=== PATIENT | male | born 1940 | race Caucasian/White ===

== ENCOUNTER 2016-08-05 16:15 | Inpatient (IN) | payer OTHER, MEDICARE ==
[~2016-08-05] VITALS: Ht 177.8 cm; Wt 97.4 kg
[2016-08-11] MEDS ORDERED: LEVO50TA4 PO (13:27)
[2016-08-11] MEDS ORDERED: ATEN50TA PO (13:27)
[2016-08-11] MEDS ORDERED: ALBU1AER5 INH (13:27)
[2016-08-11] MEDS ORDERED: CYAN1DRO SL (13:27)
[2016-08-11] MEDS ORDERED: VENTAER INH (13:27)
[2016-08-11] MEDS ORDERED: FOLI1TAB4 PO (13:27)
[2016-08-11] MEDS ORDERED: COUM5TAB PO (13:27)
[2016-08-12 12:30] VITALS: BP 143/93; PULSE 86; RESP 20; TEMP 97.5; O2SAT 95
[2016-08-12] MEDS ORDERED: ALVIMOPAN 12 MG CAPSULE ONE (12:43)
[2016-08-12] MEDS ORDERED: SODIUM CHLORID 0.9% 500 ML IV SCH (12:45)
[2016-08-12] MEDS ORDERED: METRONIDAZOLE 500 MG/100 ML ISONTONIC SOLN IV SCH (12:45)
[2016-08-12] MEDS ORDERED: LACTATED RINGER'S 1000 ML IV SCH (12:45)
[2016-08-12] MEDS ORDERED: METOPROLOL TARTRATE 25 MG TAB PO PRN (12:45)
[2016-08-12] MEDS ORDERED: INSULIN HUMAN REGULAR 1,000 UNITS/10 ML VIAL SQ PRN (12:45)
[2016-08-12] MEDS ORDERED: ceFAZolin 2 GM PREMIX 50 ML IV SCH (12:45)
[2016-08-12 12:53] LABS: BASOPHIL % 0.3 % (0.0-2.0); EOSINOPHIL # 0.2 TH/MM3 (0-0.4); EOSINOPHIL % 3.1 % (0.0-4.0); HEMATOCRIT 45.5 % (39.0-51.0); HEMO FLAGS DIFF FINAL; LYMPH % 23.5 % (9.0-44.0); LYMPHOCYTE # 1.5 TH/MM3 (1.0-4.8); MEAN CORPUSCULAR HEMOGLOBIN 33.6 PG (27.0-34.0); MEAN CORPUSCULAR HGB CONC 34.7 % (32.0-36.0); NEUT % 64.1 % (16.0-70.0); PLATELET COUNT 180 TH/MM3 (150-450); RED BLOOD COUNT 4.69 MIL/MM3 (4.50-5.90); WHITE BLOOD COUNT 6.2 TH/MM3 (4.0-11.0)
[2016-08-12] MEDS ORDERED: ALVIMOPAN 12 MG CAPSULE - On Call PO SCH (13:00)
[2016-08-12] MEDS ORDERED: BUPIVACAINE/EPINEPHRINE 0.25% PF 30 ML VIAL ONE (13:00)
[2016-08-12] MEDS ORDERED: NEOSTIGMINE 3 MG/3 ML SYR IV ONE (13:02)
[2016-08-12] MEDS ORDERED: ePHEDrine/NS 50 MG/5 ML SYR IV ONE (13:02)
[2016-08-12] MEDS ORDERED: ONDANSETRON HCL 4 MG/2 ML VIAL IV PUSH ONE (13:02)
[2016-08-12] MEDS ORDERED: PROPOFOL 200 MG/20 ML AMP IV ONE (13:02)
[2016-08-12] MEDS ORDERED: NORMOSOL R INJ 1,000 ML IV ONE (13:02)
[2016-08-12 13:04] LABS: INTERNATIONAL NORMALIZED RATIO 1.1 RATIO; PROTHROMBIN TIME - PATIENT 11.7 SEC (9.8-11.6)
[2016-08-12 13:07] LABS: ANION GAP 9 MEQ/L (5-15); BICARBONATE 26.2 MEQ/L (21.0-32.0); BLOOD UREA NITROGEN 9 MG/DL (7-18); CHLORIDE 100 MEQ/L (98-107); GLOMERULAR FILTRATION RATE 93 ML/MIN (>89); POTASSIUM 3.8 MEQ/L (3.5-5.1); SODIUM (NA) 135 MEQ/L (136-145)
[2016-08-12 13:10] LABS: ALKALINE PHOSPHATASE 89 U/L (45-117); ALT (GPT) 19 U/L (12-78); AST (GOT) 20 U/L (15-37); TOTAL BILIRUBIN ADULT 1.1 MG/DL (0.2-1.0)
[2016-08-12] MEDS ORDERED: HYDROmorphone HCL PF 2 MG/ML VIAL ONE (13:28)
[2016-08-12] MEDS ORDERED: FAMOTIDINE 20 MG/2 ML VIAL ONE (13:28)
[2016-08-12] MEDS ORDERED: fentaNYL CITRATE 250 MCG/5 ML AMP ONE ×2 (13:28→15:56)
[2016-08-12] MEDS ORDERED: ACETAMINOPHEN 1000 MG/100 ML VIAL IV ONE (13:29)
[2016-08-12] MEDS: SODIUM CHLOR 0.9% 1000 ML INJ 1,000 ML IV SCH (15:51)
--- NOTE | 2016-08-12 15:51 | PD.OP ---
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 EBL less than 25 ml. Fausto Diaz MD Aug 12, 2016 15:51
[2016-08-12] MEDS ORDERED: DO NOT ADM ANY ANTICOAGULANT DRUGS XX PRN (15:53)
[2016-08-12] MEDS ORDERED: *PROMETHAZINE 25 MG/ML VIAL PERIprocedural use ONLY ONE (15:59)
[2016-08-12] MEDS ORDERED: ONDANSETRON HCL 4 MG/2 ML VIAL IV PRN (16:00)
[2016-08-12] MEDS ORDERED: Post-op Orders (for Pharmacy) MISC XX ONE (16:00)
[2016-08-12] MEDS ORDERED: MORPHINE SULFATE 4 MG/ML INJ IV PUSH PRN (16:00)
[2016-08-12] MEDS ORDERED: NON-FORMULARY DRUG (Albuterol Powder Inh (Proair Respiclick Inh) 2 PUFF) INH PRN (16:00)
[2016-08-12] MEDS ORDERED: MAGNESIUM HYDROXIDE SUSP 30 ML CUP PO PRN (16:00)
[2016-08-12] MEDS ORDERED: *morphine SULFATE 8 MG/ML PERIprocedure ONLY ONE (16:53)
[2016-08-12 20:00] VITALS: BP 128/86; PULSE 90; RESP 20; TEMP 97.5; O2SAT 98
[2016-08-12] MEDS ORDERED: [UNRECOGNIZED DRUG - OTHER] INH PRN (20:30)
[2016-08-12] MEDS: ATENOLOL 50 MG TAB PO SCH (20:41)
[2016-08-12] MEDS: FOLIC ACID 1 MG TAB PO SCH (20:42)
[2016-08-12] MEDS: DOCUSATE SODIUM 100 MG CAP PO SCH (20:42)
[2016-08-12] MEDS: ACETAMINOPHEN 1000 MG/100 ML VIAL IV SCH (20:45)
[2016-08-12] MEDS: SODIUM CHLORIDE 0.9% FLUSH 5 ML FLUSH IVF SCH (20:53)
[2016-08-12] MEDS: ACETAMINOPHEN/HYDROcodone 325 MG/5 MG TAB PO PRN (20:55)
[2016-08-13] VITALS (7 sets, daily range): BP systolic 105–134; BP diastolic 71–78; PULSE 56–88; RESP 18–21; TEMP 96–98.8; O2SAT 95–99
[2016-08-13] MEDS: ACETAMINOPHEN 1000 MG/100 ML VIAL IV SCH ×4 (05:06→20:00)
[2016-08-13] MEDS: SODIUM CHLOR 0.9% 1000 ML INJ 1,000 ML IV SCH (05:06)
[2016-08-13] MEDS: LEVOTHYROXINE SODIUM 50 MCG TAB PO SCH (05:07)
[2016-08-13] MEDS: ACETAMINOPHEN/HYDROcodone 325 MG/5 MG TAB PO PRN ×4 (05:34→19:53)
[2016-08-13 06:04] LABS: AUTOMATED NEUTROPHIL # 7.5 TH/MM3 (1.8-7.7); BASOPHIL % 0.2 % (0.0-2.0); EOSINOPHIL % 0.1 % (0.0-4.0); HEMATOCRIT 43.1 % (39.0-51.0); HEMO FLAGS DIFF FINAL; LYMPH % 10.8 % (9.0-44.0); MEAN CELL VOLUME 99.9 FL (80.0-100.0); MEAN CORPUSCULAR HEMOGLOBIN 33.3 PG (27.0-34.0); MEAN CORPUSCULAR HGB CONC 33.3 % (32.0-36.0); MONO % 8.6 % (0.0-8.0); NEUT % 80.3 % (16.0-70.0); PLATELET COUNT 174 TH/MM3 (150-450); RED BLOOD COUNT 4.32 MIL/MM3 (4.50-5.90); RED CELL DISTRIBUTION WIDTH 14.3 % (11.6-17.2); WHITE BLOOD COUNT 9.3 TH/MM3 (4.0-11.0)
[2016-08-13 06:32] LABS: BICARBONATE 30.9 MEQ/L (21.0-32.0); POTASSIUM 4.3 MEQ/L (3.5-5.1)
[2016-08-13] MEDS: SODIUM CHLORIDE 0.9% FLUSH 5 ML FLUSH IVF SCH ×2 (07:23→19:55)
[2016-08-13] MEDS: DOCUSATE SODIUM 100 MG CAP PO SCH ×2 (08:54→19:53)
[2016-08-13] MEDS: ALVIMOPAN 12 MG CAPSULE - Post-op dosing PO SCH ×2 (08:54→19:53)
[2016-08-13] MEDS: ALBUTEROL SULFATE 90 MCG/ACT HFA 8 GM INHALER INH SCH (08:55)
[2016-08-13] MEDS ORDERED: CYANOCOBALAMIN 5000 MCG SL SCH ×2 (09:00)
--- NOTE | 2016-08-13 12:28 | HHI.PR ---
Subjective Subjective Notes doing well, hurts to cough. O2 irritates his nose. No flatus or BM yet, no nausea with po fulls. Objective Vitals/I&O Vital Signs Date Time Temp Pulse Resp B/P Pulse Ox O2 Delivery O2 Flow Rate FiO2 08/13/16 12:00 97.6 58 18 131/78 99 08/13/16 08:55 Nasal Cannula 2.00 Labs Laboratory Tests Test 08/13/16 05:23 White Blood Count 9.3 Red Blood Count 4.32 Hemoglobin 14.4 Hematocrit 43.1 Mean Corpuscular Volume 99.9 Mean Corpuscular Hemoglobin 33.3 Mean Corpuscular Hemoglobin 33.3 Concent Red Cell Distribution Width 14.3 Platelet Count 174 Mean Platelet Volume 8.1 Neutrophils (%) (Auto) 80.3 Lymphocytes (%) (Auto) 10.8 Monocytes (%) (Auto) 8.6 Eosinophils (%) (Auto) 0.1 Basophils (%) (Auto) 0.2 Neutrophils # (Auto) 7.5 Lymphocytes # (Auto) 1.0 Monocytes # (Auto) 0.8 Eosinophils # (Auto) 0.0 Basophils # (Auto) 0.0 CBC Comment DIFF FINAL Differential Comment Sodium Level 139 Potassium Level 4.3 Chloride Level 102 Carbon Dioxide Level 30.9 Anion Gap 6 Blood Urea Nitrogen 8 Creatinine 0.92 Estimat Glomerular Filtration 80 Rate Random Glucose 91 Calcium Level 8.0 Lungs: Clear Abdomen: Non-distended, Other (incisions all healing well beneath steri strips. no erythema or drainage.), Post-op tenderness, BS normal Extremities: No edema, Perfused A/P Assessment and Plan POD 1 s/p segmental colon resection. Doing well. DC IVF. Progress diet. [place]. Fausto Diaz MD Aug 13, 2016 12:28
[2016-08-13] MEDS: ENOXAPARIN SODIUM 40 MG/0.4 ML SYRINGE SQ SCH (14:59)
[2016-08-13] MEDS: WARFARIN SOD 5 MG TAB PO SCH (17:20)
[2016-08-13] MEDS: ATENOLOL 50 MG TAB PO SCH (19:53)
[2016-08-13] MEDS: FOLIC ACID 1 MG TAB PO SCH (19:53)
[2016-08-14] VITALS (7 sets, daily range): BP systolic 120–142; BP diastolic 78–97; PULSE 63–95; RESP 16–21; TEMP 96–98.4; O2SAT 96–99
[2016-08-14] MEDS: ACETAMINOPHEN/HYDROcodone 325 MG/5 MG TAB PO PRN ×2 (00:07→04:58)
[2016-08-14] MEDS: ACETAMINOPHEN 1000 MG/100 ML VIAL IV SCH ×4 (01:25→20:00)
[2016-08-14] MEDS: LEVOTHYROXINE SODIUM 50 MCG TAB PO SCH (04:58)
[2016-08-14] MEDS: DOCUSATE SODIUM 100 MG CAP PO SCH ×2 (08:16→20:04)
[2016-08-14] MEDS: ALVIMOPAN 12 MG CAPSULE - Post-op dosing PO SCH ×2 (08:16→20:04)
[2016-08-14] MEDS: ALBUTEROL SULFATE 90 MCG/ACT HFA 8 GM INHALER INH SCH ×3 (08:17→20:08)
[2016-08-14] MEDS: SODIUM CHLORIDE 0.9% FLUSH 5 ML FLUSH IVF SCH ×2 (08:17→20:05)
--- NOTE | 2016-08-14 09:58 | HHI.PR ---
Subjective Subjective Notes has passed a small amount of flatus, but feels distended. Voiding urine well. Walked halls, felt a little SOB. O2 back on. Objective Vitals/I&O Vital Signs Date Time Temp Pulse Resp B/P Pulse Ox O2 Delivery O2 Flow Rate FiO2 08/14/16 00:00 96.0 63 20 120/79 99 08/13/16 19:51 Nasal Cannula 2.00 Cardiovascular: Regular Lungs: Clear, Other (Mild wheeze L side.) Abdomen: Other (mildly distended, incisions all clean and dry, no erythema.), Post-op tenderness, BS normal Extremities: No edema, Perfused A/P Assessment and Plan POD 2 s/p segmental colon resection. Doing well. continue to walk halls. add erythromycin for gastric emptying/ stimulate bowels. albuterol neb for wheeze. Hopefully home tomorrow. Fausto Diaz MD Aug 14, 2016 09:58
[2016-08-14] MEDS ORDERED: RESP: ALBUTEROL 1.25 MG/3 ML NEB (PRN) NEB (10:00)
[2016-08-14] MEDS: ERYTHROMYCIN IV SCH ×2 (12:29→18:38)
[2016-08-14] MEDS: SODIUM CHLORIDE 0.9% IV SCH ×2 (12:29→18:38)
[2016-08-14] MEDS: ENOXAPARIN SODIUM 40 MG/0.4 ML SYRINGE SQ SCH (13:43)
[2016-08-14] MEDS: WARFARIN SOD 5 MG TAB PO SCH (15:51)
[2016-08-14] MEDS ORDERED: SOD PHOSPHATE/SOD BIPHOSPHATE (ADULT) ENEMA 133ML PR PRN (16:00)
[2016-08-14] MEDS ORDERED: BISACODYL 10 MG SUPP RECTAL ONE (16:00)
--- NOTE | 2016-08-14 18:41 | RADRPT ---
EXAM DATE/TIME: 08/14/2016 18:28 [facility] COMPARISON: No previous studies available for comparison. INDICATIONS : Abdominal distention. MEDICAL HISTORY : Carcinoma, colon. SURGICAL HISTORY : Bowel resection ENCOUNTER: Initial ACUITY: 2 days PAIN SCORE: 9/10 LOCATION: Right abdomen FINDINGS: There is moderate distention of small bowel and cecum. More distal colon appears relatively normal ca liber. No free air seen. CONCLUSION: Concern for early or partial colonic obstruction at the level of the hepatic flexure. No free air. Roverto Zhang MD on August 14, 2016 at 18:37 Board Certified Radiologist. This report was verified electronically.
[2016-08-14] MEDS: FOLIC ACID 1 MG TAB PO SCH (20:04)
[2016-08-14] MEDS: ATENOLOL 50 MG TAB PO SCH (20:04)
[2016-08-14] MEDS ORDERED: BISACODYL 10 MG SUPP RECTAL PRN (22:15)
[2016-08-15] VITALS (7 sets, daily range): BP systolic 128–169; BP diastolic 74–102; PULSE 61–86; RESP 16–21; TEMP 95.5–98.8; O2SAT 96–99
[2016-08-15] MEDS: SODIUM CHLORIDE 0.9% IV SCH ×5 (00:27→23:56)
[2016-08-15] MEDS: ACETAMINOPHEN 1000 MG/100 ML VIAL IV SCH ×5 (00:27→23:56)
[2016-08-15] MEDS: ERYTHROMYCIN IV SCH ×5 (00:27→23:56)
[2016-08-15] MEDS: SODIUM CHLORIDE 0.9% FLUSH 5 ML FLUSH IVF PRN ×2 (00:27→05:18)
[2016-08-15] MEDS: LEVOTHYROXINE SODIUM 50 MCG TAB PO SCH (05:20)
[2016-08-15] MEDS: ALVIMOPAN 12 MG CAPSULE - Post-op dosing PO SCH ×2 (09:45→20:31)
[2016-08-15] MEDS: DOCUSATE SODIUM 100 MG CAP PO SCH ×2 (09:45→20:30)
[2016-08-15] MEDS: SODIUM CHLORIDE 0.9% FLUSH 5 ML FLUSH IVF SCH ×2 (09:45→20:30)
[2016-08-15] MEDS: ALBUTEROL SULFATE 90 MCG/ACT HFA 8 GM INHALER INH SCH ×2 (09:46→20:30)
--- NOTE | 2016-08-15 10:37 | MP ---
cc: MACHO ROGERS M.D. DATE OF SURGERY: 08/12/2016 PREOPERATIVE DIAGNOSIS: Low grade adenocarcinoma transverse colon. POSTOPERATIVE DIAGNOSIS: Low grade adenocarcinoma transverse colon. OPERATION: Segmental laparoscopic assisted transverse colon resection. SURGEON Dr. Macho Rogers WOOD CABINET FINISHER: Dr. Fili Morrison ANESTHESIA General INDICATIONS This is a very pleasant 75-year-old gentleman sent to me in consultation by Dr. Jeremy Hallman for evaluation of a low grade adenocarcinoma of the transverse colon. The patient was found to have a polyp with atypical changes. He underwent a submucosal resection of an 8 x 20 mm polyp. Pathology demonstrated low grade adenocarcinoma arising from a atypical polyp. Recommendations were made for segmental resection. INTRAOPERATIVE FINDINGS At least 8 cm proximal and distal in vivo margins: Sent with suture on distal margin. ESTIMATED BLOOD LOSS: Estimated blood loss was less than 25ml DESCRIPTION OF PROCEDURE IN DETAIL The patient identified as Torsten Segura, taken to the operating room and placed in the supine position. Sequential compression devices were placed on bilateral lower extremities. Following induction of adequate general tracheal anesthesia the patient's abdomen was prepped and draped in usual sterile fashion with Betadine. The time-out procedure was performed. Following completion time-out procedure to everyone's satisfaction within the room 0.25% Marcaine with epinephrine was placed at each incision site. The supraumbilical 2-cm vertical incision was carried out with scalpel dissection posterior level of midline fascia. The fascia was incised in vertical fashion and the peritoneum brought anteriorly. This was incised with a scalpel and entry the peritoneal cavity was facilitated with surgeon's finger. The applied medical balloon Calvin trocar was placed in peroneal cavity balloon inflated to insufflation to level of 15 mmHg ensued. Three upper abdominal 5 mm trocars were placed. The abdominal cavity with right upper quadrant two in the left side of the abdomen. Attention was turned first to identification of the omentum and the transverse colon the omentum was brought up and taken off of the transverse colon from the mid left to the right about half the distance from the middle colic vessels to the hepatic flexure the tattooed segment of transverse colon was identified. The omentum was lifted off the transverse colon through this entire distance using the harmonic scalpel and any adherent appendices epiploicae were mobilized as well in a similar fashion. This allowed for significant mobilization of the colon so as to believe that we could bring this up through a small incision just above the umbilicus for in preparation for resection and anastomosis. The supraumbilical incision was extended about 68 cm superiorly placing local anesthetic using a scalpel. The skin electrocautery. The wound protector was then placed into the abdominal wound and the transverse colon tattooed area was brought out through the wound protector. Segments with the least 8 cm proximal and distal were cleared off and windows of the mesentery developed and the CASSIE blue staple loads were fired across proximally distally. A wedge of mesentery was then taken down using the harmonic scalpel at the base the mesentery cross-clamped with Kath clamps and suture ligated with 3-0 Vicryl suture ligature. He and tied with 2-0 silk ties. Specimen was removed in its entirety after marking the distal margin with a silk suture. The ends of the transverse colon did not lay anatomically well enough to provide for a functional end-to-end, [id number] staple anastomosis and therefore a suture anastomosis was performed. The proximal distal segments lay without tension and a posterior layer of 3-0 silk sutures were placed on the posterior aspect of the tinea coli in both the proximal and distal segments a length about 5 cm of full thickness defects were created with electrocautery. Both proximal distal segments and then 3-0 Vicryl was used in the inner layer of the anastomosis. A Berlin stitch was used on either end and the inner layer was completed. 3-0 silk interrupted sutures were placed on the serosa for an anterior layer of the two-layer anastomosis. The area was then returned to its normal anatomic position. The omentum was brought over the anastomosis and held in position with a 3-0 silk suture. Irrigation ensued. There is no evidence of bleeding. 5 mm trocars were removed. There was no evidence of bleeding. The supraumbilical fascial incision was closed with running #1 single stranded PDS suture. Subcutaneous layer was irrigated and skin was approximated with running 4-0 Monocryl subcuticular suture. Interrupted 4-0 Monocryl subcuticular sutures were placed at the port sites. Dressings were completed with Mastisol inch brown Steri-Strips. A Primapore dressing was post placed over the supraumbilical midline incision. The patient tolerated the procedure without apparent complication. Sponge, needle and instrument counts were correct at the case. MD Debi Sewell /4:00 PM /9:47 AM ANTOLIN
[2016-08-15] MEDS: ENOXAPARIN SODIUM 40 MG/0.4 ML SYRINGE SQ SCH (13:48)
[2016-08-15] MEDS: WARFARIN SOD 5 MG TAB PO SCH (15:44)
--- NOTE | 2016-08-15 17:21 | HHI.PR ---
Subjective Subjective Notes still feels distended, has passed flatus but no BM yet. Decreased appetite, no nausea or vomiting. Objective Vitals/I&O Vital Signs Date Time Temp Pulse Resp B/P Pulse Ox O2 Delivery O2 Flow Rate FiO2 08/15/16 12:30 97 Nasal Cannula 2.00 08/15/16 12:00 96.8 68 16 128/74 Cardiovascular: Regular Lungs: Clear, Other (2l O2 NC on.) Abdomen: Other (moderate distension. Normo active bowel sounds.), Post-op tenderness Extremities: No edema, Perfused, SCD's on A/P Assessment and Plan POD 3 s/p segmental colon resection. distended. Gas in mildly distended cecum, but gas in colon distal to anastomosis. Voiding normally, awaiting return of bowel function. On entereg and erythromycin. Encouraged to walk halls. Mag citrate available if needed. Likely etiology is edema at anastomosis. D/W pt and family. Path benign. Fausto Diaz MD Aug 15, 2016 17:21
[2016-08-15] MEDS ORDERED: MAGNESIUM CITRATE SOLN 300 ML BTL PO ONE (17:30)
[2016-08-15] MEDS: FOLIC ACID 1 MG TAB PO SCH (20:31)
[2016-08-15] MEDS: ATENOLOL 50 MG TAB PO SCH (20:31)
[2016-08-15] MEDS: ACETAMINOPHEN/HYDROcodone 325 MG/5 MG TAB PO PRN (20:36)
[2016-08-16] VITALS (7 sets, daily range): BP systolic 106–131; BP diastolic 65–84; PULSE 72–82; RESP 16–20; TEMP 96.8–98.1; O2SAT 96–99
[2016-08-16] MEDS: LEVOTHYROXINE SODIUM 50 MCG TAB PO SCH (05:13)
[2016-08-16] MEDS: ERYTHROMYCIN IV SCH ×4 (05:13→23:28)
[2016-08-16] MEDS: SODIUM CHLORIDE 0.9% IV SCH ×4 (05:13→23:28)
[2016-08-16 05:43] LABS: INTERNATIONAL NORMALIZED RATIO 1.2 RATIO; PROTHROMBIN TIME - PATIENT 13.8 SEC (9.8-11.6)
[2016-08-16] MEDS: ACETAMINOPHEN 1000 MG/100 ML VIAL IV SCH ×4 (08:00→23:31)
--- NOTE | 2016-08-16 09:40 | HHI.PR ---
Subjective Subjective Notes had two BMs, with old blood, improved distention. c/o abdominal incisional pain, has not used pain med. Objective Vitals/I&O Vital Signs Date Time Temp Pulse Resp B/P Pulse Ox O2 Delivery O2 Flow Rate FiO2 08/16/16 08:00 98.1 82 20 131/84 99 08/15/16 20:30 Nasal Cannula 2.00 Labs Laboratory Tests Test 08/16/16 04:42 Prothrombin Time 13.8 Prothromb Time International 1.2 Ratio Cardiovascular: Regular Lungs: Clear Abdomen: Other (incisions are clean and dry. No erythema, no drainage. There are normal bowel sounds. his abdomen is less distended.), Post-op tenderness Extremities: No edema, Perfused A/P Assessment and Plan POD 4 s/p segmental colon resection. Less distended. Had 2 BMs with old blood. c/o SOB, lungs clear, will repeat albuterol nebs. Hopeful for a good day today and home tomorrow. Encouraged to use pain med for incisional tenderness. Fausto Diaz MD Aug 16, 2016 09:40
[2016-08-16] MEDS ORDERED: RESP: ALBUTEROL 2.5 MG/3 ML NEB (PRN) NEB (09:45)
[2016-08-16] MEDS: ACETAMINOPHEN/HYDROcodone 325 MG/5 MG TAB PO PRN ×2 (09:46→21:09)
[2016-08-16] MEDS: DOCUSATE SODIUM 100 MG CAP PO SCH ×2 (09:47→20:32)
[2016-08-16] MEDS: SODIUM CHLORIDE 0.9% FLUSH 5 ML FLUSH IVF SCH ×2 (09:47→20:33)
[2016-08-16] MEDS: ALBUTEROL SULFATE 90 MCG/ACT HFA 8 GM INHALER INH SCH ×2 (09:47→20:31)
[2016-08-16] MEDS: ALVIMOPAN 12 MG CAPSULE - Post-op dosing PO SCH ×2 (09:47→20:33)
--- NOTE | 2016-08-16 10:15 | RADRPT ---
EXAM DATE/TIME: 08/16/2016 08:50 [facility] COMPARISON: CT ABDOMEN & PELVIS W CONTRAST, March 29, 2014, 17:48. ABDOMEN FLAT & UPRIGHT, August 14, 2016, 18:28. INDICATIONS : Abdominal pain, blood in stool for 4 days MEDICAL HISTORY : Carcinoma, colon. SURGICAL HISTORY : Bowel resection ENCOUNTER: Initial ACUITY: 1 day PAIN SCORE: 7/10 LOCATION: Bilateral abdomen FINDINGS: Supine and upright views of the abdomen demonstrate air distended colon with air-fluid levels in the distal transverse colon and within a nonspecific loop in the right upper quadrant. No free intraperit mesa air is present. No significant small bowel gas is visualized otherwise. The lung bases have a s table appearance with patchy opacity representing atelectasis or consolidation. There are degenerativ e changes of the lumbar spine. CONCLUSION: Stable examination of the abdomen with a mildly dilated segment of bowel in the right upper quadrant with air-fluid level. I cannot determine with confidence if this is small bowel or colon but it appea red to represent colon on the prior study. No dilated small bowel is otherwise seen to suggest obstru ction. Roverto Campos MD on August 16, 2016 at 10:09 Board Certified Radiologist. This report was verified electronically.
[2016-08-16] MEDS: WARFARIN SOD 5 MG TAB PO SCH (15:59)
[2016-08-16] MEDS: ENOXAPARIN SODIUM 40 MG/0.4 ML SYRINGE SQ SCH (15:59)
[2016-08-16] MEDS: ATENOLOL 50 MG TAB PO SCH (20:33)
[2016-08-16] MEDS: FOLIC ACID 1 MG TAB PO SCH (20:33)
[2016-08-17] VITALS: BP 124/78; PULSE 78; RESP 20; TEMP 97.4; O2SAT 96
[2016-08-17] MEDS: LEVOTHYROXINE SODIUM 50 MCG TAB PO SCH (05:06)
[2016-08-17] MEDS: SODIUM CHLORIDE 0.9% IV SCH (05:06)
[2016-08-17] MEDS: ERYTHROMYCIN IV SCH (05:06)
[2016-08-17] MEDS: ACETAMINOPHEN/HYDROcodone 325 MG/5 MG TAB PO PRN (06:25)
[2016-08-17] MEDS: ALVIMOPAN 12 MG CAPSULE - Post-op dosing PO SCH (07:57)
[2016-08-17] MEDS: DOCUSATE SODIUM 100 MG CAP PO SCH (07:57)
[2016-08-17] MEDS: SODIUM CHLORIDE 0.9% FLUSH 5 ML FLUSH IVF SCH (07:58)
[2016-08-17] MEDS: ACETAMINOPHEN 1000 MG/100 ML VIAL IV SCH (07:58)
[2016-08-17] MEDS: ALBUTEROL SULFATE 90 MCG/ACT HFA 8 GM INHALER INH SCH (07:58)
[2016-08-17 08:00] VITALS: BP 127/85; PULSE 70; RESP 19; TEMP 98.2; O2SAT 98
--- NOTE | 2016-08-17 11:13 | HHI.PR ---
Subjective Subjective Notes feesl good, multiple BMs wants to go home, tolerating po Objective Vitals/I&O Vital Signs Date Time Temp Pulse Resp B/P Pulse Ox O2 Delivery O2 Flow Rate FiO2 08/17/16 11:04 95 Room Air 08/17/16 08:00 98.2 70 19 127/85 08/16/16 21:00 1.00 Cardiovascular: Regular Lungs: Clear Abdomen: Non-distended, Post-op tenderness, BS normal Wound Wound : Wound Location: Abdomen Appearance: Clean & Dry A/P Assessment and Plan s/p lap assisted colon resection ok to dc home fu this week with dr hernández rx on chart Fili Morrison MD Aug 17, 2016 11:13
[2016-08-17 11:36] VITALS: O2SAT 95
[2016-08-17 12:00] VITALS: BP 125/78; PULSE 73; RESP 18; TEMP 98.4; O2SAT 97
--- NOTE | 2016-09-09 11:29 | HHI.DS ---
Discharge Summary Admission Date Aug 12, 2016 at 11:27 Discharge Date: Aug 17, 2016 Admitting Diagnosis Brief History 75 year old s/p lap assisted colon resection PE at Discharge Alert and awake Resp: CTAB Abd: incision c/d/i Ext: warm dry Hospital Course This is a 75 year old lap assisted colon resection. The patient had no post- operative complications. He was able to tolerated a PO diet. His pain was controlled. He will follow up in the office for staple removal. Pt Condition on Discharge: Good Discharge Disposition: Discharge Home Discharge Instructions DIET: Follow Instructions for: As Tolerated, No Restrictions Activities you can perform: Regular-No Restrictions Donya Minor Sep 09, 2016 11:29
== END 2016-08-17 12:30 | disposition home or self-care (01) | DRG 331 ==
LOC: HSDI 08-12 11:27 → N07A 08-12 17:49
PROVIDERS: ADMIT Surgery Trauma Surgery; ATTEND Surgery Trauma Surgery
PROC: 0DBL4ZZ Excision of Transverse Colon, Percutaneous Endoscopic Approach (ICD-10-PCS; principal; 2016-08-12 13:28)
DX: C18.4 Malignant neoplasm of transverse colon (principal); I48.91 Unspecified atrial fibrillation; J44.9 Chronic obstructive pulmonary disease, unspecified; Z86.010 Personal history of colon polyps; Z79.01 Long term (current) use of anticoagulants; Z80.0 Family history of malignant neoplasm of digestive organs; Z87.891 Personal history of nicotine dependence; E03.9 Hypothyroidism, unspecified; E66.9 Obesity, unspecified; Z68.30 Body mass index [BMI] 30.0-30.9, adult
CPT/HCPCS: 74020; 80048; 80053; 85025; 85610; 86850; 86900; 86901; 88307; 88309; 94150; 94664; J0131; J0690; J1170; J1364; J1650; J2270; J2405; J2550; J2710; J3010; J7030; J7120; J7613

== ENCOUNTER 2016-10-25 10:34 | Observation (INO) | payer MEDICARE, OTHER ==
[2016-10-25] VITALS (11 sets, daily range): BP systolic 130–160; BP diastolic 71–92; PULSE 52–98; RESP 16–21; TEMP 97.9–98.4; O2SAT 93–97
[~2016-10-25] VITALS: Ht 177.8 cm; Wt 98.0 kg
[~2016-10-25 10:34] MED LIST: ALBU1AER5 INH; ATEN50TA PO; COUM5TAB PO; CYAN1DRO SL; FOLI1TAB4 PO; LEVO50TA4 PO; VENTAER INH
--- NOTE | 2016-10-25 10:56 | PD ---
HPI Chief Complaint: Chest Pain Time Seen by Provider: 10:54 Travel History International Travel<30 days: No Contact w/Intl Traveler<30days: No Traveled to known affect area: No History of Present Illness HPI 76-year-old male with history of atrial fibrillation currently on Coumadin, presents to the ER today with worsening 8 out of 10 intermittent chest pains for several days, coughing, shortness of breath. He does not know any exacerbating or alleviating factors. He states that his chest pains have been occurring intermittently but is getting closer together and only last a few seconds at a time. He has had no previous history of this. He denies any vomiting, fevers, or any other symptoms. Modifying Factors: None Associated Signs & Symptoms: Intermittent chest pains and shortness of breath Risk Factors: A. james PFSH Past Medical History Atrial Fibrillation: Yes Heart Rhythm Problems: Yes (chronic Afib) Cancer: Yes (recent bx of colorectal polyp showing cancer) Cardiovascular Problems: Yes High Cholesterol: No Chest Pain: No Congestive Heart Failure: No Diabetes: No Endocrine: Yes Gastrointestinal Disorders: Yes (prev inguinal hernia) Genitourinary: No Hepatitis: No Hiatal Hernia: No Immune Disorder: No Musculoskeletal: No Neurologic: No Psychiatric: No Reproductive: No Respiratory: Yes Immunizations Current: No Thyroid Disease: Yes (on med) Past Surgical History Abdominal Surgery: Yes (inguinal hernia repair 20 yrs ago) AICD: No Arteriovenous Shunt: No Cardiac Surgery: No Ear Surgery: No Endocrine Surgery: No Eye Surgery: No Genitourinary Surgery: No Gynecologic Surgery: No Insulin Pump: No Joint Replacement: No Oral Surgery: Yes (for upper/lower dentures) Pacemaker: No Thoracic Surgery: No Other Surgery: Yes Social History Alcohol Use: Yes (Daily) Tobacco Use: No Substance Use: No Allergies-Medications (Allergen,Severity, Reaction): Coded Allergies: No Known Allergies (Verified , 08/12/16) Reported Meds & Prescriptions Reported Meds & Active Scripts Active Reported Ventolin Hfa 18 GM Inh (Albuterol Sulfate) 90 Mcg/Act Aer 2 Puff INH BID Proair Respiclick Inh (Albuterol Sulfate) 90 Mcg/Act Aerp 2 Puff INH TID PRN Levothyroxine (Levothyroxine Sodium) 50 Mcg Tab 50 Mcg PO DAILY Coumadin (Warfarin) 5 Mg Tab 5 Mg PO DAILY Folate (Folic Acid) 1 Mg Tab 1 Mg PO HS Vitamin B-12 Liq (Cyanocobalamin) 3,000 Mcg/Ml Drops 5,000 Mcg SL DAILY Atenolol 50 Mg Tab 50 Mg PO HS Review of Systems Except as stated in HPI: all other systems reviewed are Neg Physical Exam Narrative GENERAL: Elderly white male patient currently awake, alert, oriented 3. Not in acute distress at rest. SKIN: Focused skin assessment warm/dry. HEAD: Atraumatic. Normocephalic. EYES: Pupils equal and round. No scleral icterus. No injection or drainage. ENT: No nasal bleeding or discharge. Mucous membranes pink and moist. NECK: Trachea midline. No JVD. CARDIOVASCULAR: Irregularly irregular. No murmur appreciated. RESPIRATORY: No accessory muscle use. Clear to auscultation with bibasilar rails up to the midlung. Breath sounds equal bilaterally. GASTROINTESTINAL: Abdomen soft, non-tender, nondistended. Hepatic and splenic margins not palpable. MUSCULOSKELETAL: No obvious deformities. No clubbing. No cyanosis. Trace bilateral pitting edema the legs. NEUROLOGICAL: Awake and alert. No obvious cranial nerve deficits. Motor grossly within normal limits. Normal speech. PSYCHIATRIC: Appropriate mood and affect; insight and judgment normal. Data Data Last Documented VS Vital Signs Date Time Temp Pulse Resp B/P Pulse Ox O2 Delivery O2 Flow Rate FiO2 10/25/16 10:45 60 17 94 Room Air 10/25/16 10:42 97.9 160/72 Orders Electrocardiogram (10/25/16 ) Complete Blood Count With Diff (10/25/16 10:50) Comprehensive Metabolic Panel (10/25/16 10:50) B-Type Natriuretic Peptide (10/25/16 10:50) Act Partial Throm Time (Ptt) (10/25/16 10:50) Prothrombin Time / Inr (Pt) (10/25/16 10:50) Ckmb (Isoenzyme) Profile (10/25/16 10:50) Troponin I (10/25/16 10:50) Iv Access Insert/Monitor (10/25/16 10:50) Ecg Monitoring (10/25/16 10:50) Oximetry (10/25/16 10:50) Oxygen Administration (10/25/16 10:50) Chest, Single Ap (10/25/16 10:50) Sodium Chloride 0.9% Flush (Ns Flush) (10/25/16 11:00) Furosemide Inj (Lasix Inj) (10/25/16 11:45) Admit Order (Ed Use Only) (10/25/16 12:51) Labs Laboratory Tests Test 10/25/16 11:00 White Blood Count 7.8 TH/MM3 Red Blood Count 4.60 MIL/MM3 Hemoglobin 14.6 GM/DL Hematocrit 43.9 % Mean Corpuscular Volume 95.4 FL Mean Corpuscular Hemoglobin 31.8 PG Mean Corpuscular Hemoglobin 33.3 % Concent Red Cell Distribution Width 14.9 % Platelet Count 189 TH/MM3 Mean Platelet Volume 8.1 FL Neutrophils (%) (Auto) 66.7 % Lymphocytes (%) (Auto) 24.6 % Monocytes (%) (Auto) 6.8 % Eosinophils (%) (Auto) 1.6 % Basophils (%) (Auto) 0.3 % Neutrophils # (Auto) 5.2 TH/MM3 Lymphocytes # (Auto) 1.9 TH/MM3 Monocytes # (Auto) 0.5 TH/MM3 Eosinophils # (Auto) 0.1 TH/MM3 Basophils # (Auto) 0.0 TH/MM3 CBC Comment DIFF FINAL Differential Comment Prothrombin Time 26.4 SEC Prothromb Time International 2.3 RATIO Ratio Activated Partial 38.5 SEC Thromboplast Time Sodium Level 138 MEQ/L Potassium Level 4.0 MEQ/L Chloride Level 104 MEQ/L Carbon Dioxide Level 27.5 MEQ/L Anion Gap 7 MEQ/L Blood Urea Nitrogen 11 MG/DL Creatinine 1.00 MG/DL Estimat Glomerular Filtration 72 ML/MIN Rate Random Glucose 143 MG/DL Calcium Level 8.7 MG/DL Total Bilirubin 0.8 MG/DL Aspartate Amino Transf 14 U/L (AST/SGOT) Alanine Aminotransferase 17 U/L (ALT/SGPT) Alkaline Phosphatase 74 U/L Total Creatine Kinase 83 U/L Troponin I LESS THAN 0.02 NG/ML B-Type Natriuretic Peptide 173 PG/ML Total Protein 7.0 GM/DL Albumin 3.3 GM/DL [facility] [place] Medical Decision Making Medical Screen Exam Complete: Yes Emergency Medical Condition: Yes Medical Record Reviewed: Yes Interpretation(s) EKG shows A. fib at a rate of 63 bpm with no signs of acute ST-T changes. Laboratory Tests Test 10/25/16 11:00 Prothrombin Time 26.4 SEC (9.8-11.6) Activated Partial 38.5 SEC Thromboplast Time (24.3-30.1) Estimat Glomerular Filtration 72 ML/MIN (>89) Rate Random Glucose 143 MG/DL (74-106) Aspartate Amino Transf 14 U/L (15-37) (AST/SGOT) Troponin I LESS THAN 0.02 NG/ML (0.02-0.05) B-Type Natriuretic Peptide 173 PG/ML (0-100) Albumin 3.3 GM/DL (3.4-5.0) Differential Diagnosis Shortness of breath, intermittent chest painsdysrhythmias versus CHF versus pneumonia versus COPD exacerbation versus bronchitis Narrative Course Chest x-ray shows bilateral pulmonary fibrosis with no signs of lobar pneumonia or infiltrates. However, superimposed CHF cannot be ruled out. BNP is unremarkable. Patient had been given Lasix in the ER and felt some improvement in the shortness of breath. However, I am still concerned about the chest discomfort. Cardiac enzymes are negative. At this point, my plan would be to admit the patient for further evaluation of chest pain. Diagnosis Primary Impression: Chest pain Admitting Information Admitting Physician Requests: Admit Conchis Hernandes MD Oct 25, 2016 10:56
[2016-10-25] MEDS ORDERED: SODIUM CHLORIDE 0.9% FLUSH 10 ML FLUSH IVF PRN (11:00)
[2016-10-25 11:13] LABS: AUTOMATED NEUTROPHIL # 5.2 TH/MM3 (1.8-7.7); BASOPHIL % 0.3 % (0.0-2.0); EOSINOPHIL # 0.1 TH/MM3 (0-0.4); EOSINOPHIL % 1.6 % (0.0-4.0); HEMATOCRIT 43.9 % (39.0-51.0); HEMO FLAGS DIFF FINAL; LYMPH % 24.6 % (9.0-44.0); LYMPHOCYTE # 1.9 TH/MM3 (1.0-4.8); MEAN CELL VOLUME 95.4 FL (80.0-100.0); MEAN CORPUSCULAR HEMOGLOBIN 31.8 PG (27.0-34.0); MEAN CORPUSCULAR HGB CONC 33.3 % (32.0-36.0); MONO % 6.8 % (0.0-8.0); NEUT % 66.7 % (16.0-70.0); PLATELET COUNT 189 TH/MM3 (150-450); RED CELL DISTRIBUTION WIDTH 14.9 % (11.6-17.2); WHITE BLOOD COUNT 7.8 TH/MM3 (4.0-11.0)
[2016-10-25 11:23] LABS: APTT (PATIENT) 38.5 SEC (24.3-30.1); INTERNATIONAL NORMALIZED RATIO 2.3 RATIO; PROTHROMBIN TIME - PATIENT 26.4 SEC (9.8-11.6)
[2016-10-25 11:34] LABS: ALT (GPT) 17 U/L (12-78); ANION GAP 7 MEQ/L (5-15); AST (GOT) 14 U/L (15-37); BICARBONATE 27.5 MEQ/L (21.0-32.0); BLOOD UREA NITROGEN 11 MG/DL (7-18); CHLORIDE 104 MEQ/L (98-107); GLOMERULAR FILTRATION RATE 72 ML/MIN (>89); SODIUM (NA) 138 MEQ/L (136-145)
[2016-10-25 11:38] LABS: ALKALINE PHOSPHATASE 74 U/L (45-117); TOTAL BILIRUBIN ADULT 0.8 MG/DL (0.2-1.0)
[2016-10-25 11:43] LABS: CREATINE KINASE 83 U/L (39-308)
[2016-10-25] MEDS ORDERED: FUROSEMIDE 40 MG/4 ML VIAL IV PUSH ONE (11:45)
--- NOTE | 2016-10-25 11:55 | RADRPT ---
EXAM DATE/TIME: 10/25/2016 11:10 [facility] COMPARISON: CT THORAX W/O CONTRAST, March 25, 2016, 8:38. CHEST SINGLE AP, March 24, 2016, 18:18. INDICATIONS : Chest pain that started yesterday. MEDICAL HISTORY : A-fib. Skin cancer. SURGICAL HISTORY : Mass removed from back. ENCOUNTER: Initial ACUITY: 2 days PAIN SCORE: 10/10 LOCATION: Bilateral chest FINDINGS: Coarse interstitial changes are present in both lungs. The lungs are under aerated. This has the appearance of chronic fibrosis. Superimposed congestive failure cannot be entirely excl uded. Portion of the bony skeleton visualized is unremarkable. CONCLUSION: 1. Coarse interstitial changes in both lungs, probably chronic fibrosis. 2. Superimposed congestive failure cannot be entirely excluded. Adryan Motley MD FACR on October 25, 2016 at 11:49 Board Certified Radiologist. This report was verified electronically.
[2016-10-25] MEDS ORDERED: RESP: ALBUTEROL 2.5 MG/IPRATROPIUM 0.5 MG NEB (PRN) INH (14:15)
[2016-10-25] MEDS ORDERED: ONDANSETRON HCL 4 MG/2 ML VIAL IV PRN (14:15)
[2016-10-25] MEDS: PANTOPRAZOLE SOD 40 MG DELAYED RELEASE TAB PO SCH (14:15)
[2016-10-25] MEDS ORDERED: SODIUM CHLORIDE 0.9% FLUSH 10 ML FLUSH IV FLUSH PRN (14:15)
[2016-10-25] MEDS ORDERED: ALPRAZolam 0.25 MG TAB PO PRN (14:15)
[2016-10-25] MEDS ORDERED: RESP: ALBUTEROL 2.5 MG/IPRATROPIUM 0.5 MG NEB (SCH) INH ONE (14:15)
[2016-10-25] MEDS ORDERED: ACETAMINOPHEN 500 MG CPLT PO PRN (14:15)
[2016-10-25] MEDS ORDERED: ACETAMINOPHEN/HYDROcodone 325 MG/7.5 MG TAB PO PRN (14:15)
[2016-10-25] MEDS: LEVOTHYROXINE SODIUM 50 MCG TAB PO SCH (14:30)
--- NOTE | 2016-10-25 14:32 | HHI.HP ---
[facility] Primary Care Physician Althea Lma M.D. Chief Complaint Chest pain History of Present Illness This is a 76-year-old male with history of chronic atrial fibrillation that presents with a complaint of intermittent central chest discomfort that began yesterday afternoon. He had just finished putting down some mulch. He describes the discomfort as a sharp pain last couple seconds but continued to recur many times. States too many times to count. States he is also short of breath but then states that he has a short of breath for the last 3 months after having colon resection secondary to colon cancer. These symptoms have not worsened. No diaphoresis or nausea. He is unaware of any coronary disease. He follows Dr. Mejia for his age for ablation. He believes he had a stress test about 10 years ago and believes it that looked okay. He cannot recall his last stress test. Denies recent illness. Denies fevers or chills. Review of Systems General: Patient denies fevers, chills recent, and recent travel HEENT: Patient denies headache, sore throat, difficulty swallowing. Cardiovascular: Has the chest discomfort as mentioned above. He complains of the sensation as if his heart was flip-flopping. No syncope. He denies diaphoresis. Respiratory: He has been short of breath for a few months primarily when walking even short distances. Denies inspirational chest discomfort. Denies coughing wheezing or hemoptysis. GI: Patient denies nausea, vomiting, diarrhea, abdominal pain, bloody stools. Musculoskeletal: Patient denies joint pain or edema. Denies calf pain or edema. Neurovascular: Patient denies numbness, tingling, weakness in extremities. Denies headache. Endocrine: Denies polyuria and polydipsia. Hematologic: Denies easy bruising. Skin: Denies rash or itching. Past Family Social History Allergies: Coded Allergies: No Known Allergies (Verified , 08/12/16) Past Medical History Chronic atrophic for ablation and takes Coumadin for this. Colon cancer with recent colon resection July 2016. COPD, hyperlipidemia, hypothyroidism, neuropathy. Denies diabetes and hyperlipidemia. Denies known CAD. Past Surgical History Colon resection secondary to colon cancer July 2016. Cardiac catheterization with intervention. Inguinal hernia repair. Reported Medications Reported Meds & Active Scripts Active Reported Ventolin Hfa 18 GM Inh (Albuterol Sulfate) 90 Mcg/Act Aer 2 Puff INH BID Proair Respiclick Inh (Albuterol Sulfate) 90 Mcg/Act Aerp 2 Puff INH TID PRN Levothyroxine (Levothyroxine Sodium) 50 Mcg Tab 50 Mcg PO DAILY Coumadin (Warfarin) 5 Mg Tab 5 Mg PO DAILY Folate (Folic Acid) 1 Mg Tab 1 Mg PO HS Vitamin B-12 Liq (Cyanocobalamin) 3,000 Mcg/Ml Drops 5,000 Mcg SL DAILY Atenolol 50 Mg Tab 50 Mg PO HS Active Ordered Medications Current Medications Medications (Trade) Dose Ordered Sig/Juan Antonio Route Start Time Stop Time Status Last Admin (NS Flush) 2 ml UNSCH PRN IVF 10/25/16 11:00 (NS Flush) 2 ml UNSCH PRN IV FLUSH 10/25/16 14:15 (NS Flush) 2 ml BID IV FLUSH 10/25/16 21:00 (Tylenol) 500 mg Q4H PRN PO 10/25/16 14:15 ([place] 7.5-325 Mg) 1 tab Q4H PRN PO 10/25/16 14:15 (Zofran Inj) 4 mg Q6H PRN IV 10/25/16 14:15 UNV (Aspirin) 325 mg DAILY PO 10/26/16 09:00 UNV (Xanax) 0.25 mg Q8H PRN PO 10/25/16 14:15 UNV (Duoneb Neb) 1 ampule STAT ONCE INH 10/25/16 14:15 10/25/16 14:16 UNV (Protonix) 40 mg DAILY PO 10/25/16 14:15 UNV (Tenormin) 50 mg HS PO 10/25/16 21:00 UNV (Folate) 1 mg HS PO 10/25/16 21:00 UNV (Synthroid) 50 mcg DAILY PO 10/25/16 14:30 UNV (Coumadin) 5 mg DAILY PO 10/25/16 16:00 UNV Family History Denies family history of CAD. Social History Patient quit smoking cigarettes 40 years ago prior that he smoked a few cigarettes a day for about 10 years. Has on average 2 beers a day. Denies illicit drugs. He is . Physical Exam Vital Signs Vital Signs Date Time Temp Pulse Resp B/P Pulse Ox O2 Delivery O2 Flow Rate FiO2 10/25/16 13:00 56 21 134/71 94 Room Air 10/25/16 12:00 52 16 131/75 94 Room Air 10/25/16 10:45 60 17 94 Room Air 10/25/16 10:45 94 Room Air 10/25/16 10:45 94 Room Air 10/25/16 10:42 97.9 98 21 160/72 97 10/25/16 10:40 98.4 57 16 150/91 94 Physical Exam GENERAL: This is a well-nourished, well-developed patient, in no apparent distress. Patient speaks in clear complete sentences. Patient is pleasant. HEENT: Head is atraumatic and normocephalic. Neck is supple without lymphadenopathy and trachea is midline. No JVD or carotid bruits. CARDIOVASCULAR: Irregularly irregular rate and rhythm without murmurs, gallops, or rubs. Rate was in the 60s on examination. RESPIRATORY: There is some wheezing noted to the left base. Breath sounds equal bilaterally. No rales, or rhonchi. Chest wall is nontender. No use of accessory muscles. GASTROINTESTINAL: Abdomen is nontender, nondistended. Abdomen soft. No obvious pulsatile mass or bruit. No CVA tenderness. Strong femoral pulses bilaterally. Normal bowel sounds in all quadrants. MUSCULOSKELETAL: Patient is moving upper and lower extremities freely. No calf tenderness or edema, no Homans sign. Strong pulses in upper and lower extremities. NEUROLOGICAL: Patient is alert and oriented. Cranial nerves 2-12 are grossly intact. No focal deficits and speech is clear. SKIN: No rash and turgor is normal. Laboratory Laboratory Tests Test 10/25/16 11:00 White Blood Count 7.8 Red Blood Count 4.60 Hemoglobin 14.6 Hematocrit 43.9 Mean Corpuscular Volume 95.4 Mean Corpuscular Hemoglobin 31.8 Mean Corpuscular Hemoglobin 33.3 Concent Red Cell Distribution Width 14.9 Platelet Count 189 Mean Platelet Volume 8.1 Neutrophils (%) (Auto) 66.7 Lymphocytes (%) (Auto) 24.6 Monocytes (%) (Auto) 6.8 Eosinophils (%) (Auto) 1.6 Basophils (%) (Auto) 0.3 Neutrophils # (Auto) 5.2 Lymphocytes # (Auto) 1.9 Monocytes # (Auto) 0.5 Eosinophils # (Auto) 0.1 Basophils # (Auto) 0.0 CBC Comment DIFF FINAL Differential Comment Prothrombin Time 26.4 Prothromb Time International 2.3 Ratio Activated Partial 38.5 Thromboplast Time Sodium Level 138 Potassium Level 4.0 Chloride Level 104 Carbon Dioxide Level 27.5 Anion Gap 7 Blood Urea Nitrogen 11 Creatinine 1.00 Estimat Glomerular Filtration 72 Rate Random Glucose 143 Calcium Level 8.7 Total Bilirubin 0.8 Aspartate Amino Transf 14 (AST/SGOT) Alanine Aminotransferase 17 (ALT/SGPT) Alkaline Phosphatase 74 Total Creatine Kinase 83 Troponin I LESS THAN 0.02 B-Type Natriuretic Peptide 173 Total Protein 7.0 Albumin 3.3 Result Diagram: 10/25/16 1100 10/25/16 1100 Imaging Last 24 hours Impressions Chest X-Ray 10/25/16 1050 Signed Impressions: Service Date/Time: Thursday, October 25, 2016 11:10 - CONCLUSION: 1. Coarse interstitial changes in both lungs, probably chronic fibrosis. 2. Superimposed congestive failure cannot be entirely excluded. Adryan Motley MD FACR Course Initial EKG has atrial fibrillation rate is 63. No significant ST segment depression or elevation. Assessment and Plan Assessment and Plan * Chest pain: Patient will continue to have serial cardiac enzymes and EKGs for ruling out purposes. He will be seen by Dr. Millan in the chest pain center. He' ll likely undergo a Lexiscan if he rules out. 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 * Chronic A. fib: Continue his warfarin therapy. We'll recheck INR in the morning. * Hypothyroidism: We'll recheck a TSH. * COPD: We'll use DuoNeb when necessary. Otherwise resume his medicine at discharge. Patient is stable at this time. He is agreeable to this plan. Daniel Parsons Oct 25, 2016 14:32
--- NOTE | 2016-10-25 15:28 | EKG ---
Date Performed: 10/25/2016 Time Performed: 10:44:18 PTAGE: 76 years EKG: ATRIAL FIBRILLATION WITH SLOW VENTRICULAR RESPONSE ABNORMAL RHYTHM ECG INTERPRETATION BASED ON A DEFAULT AGE OF 39 YEARS NO PREVIOUS TRACING DOCTOR: Willem Millan Interpretating Date/Time 10/25/2016 15:28:07
--- NOTE | 2016-10-25 15:31 | EKG ---
Date Performed: 10/25/2016 Time Performed: 10:49:11 PTAGE: 76 years EKG: ATRIAL FIBRILLATION ABNORMAL RHYTHM ECG PREVIOUS TRACING : 10/25/2016 10.44 DOCTOR: Willem Millan Interpretating Date/Time 10/25/2016 15:29:25
[2016-10-25 15:54] LABS: CREATINE KINASE 79 U/L (39-308)
[2016-10-25] MEDS ORDERED: WARFARIN SOD 5 MG TAB PO SCH (16:00)
[2016-10-25 18:57] LABS: CREATINE KINASE 72 U/L (39-308)
[2016-10-25] MEDS: SODIUM CHLORIDE 0.9% FLUSH 10 ML FLUSH IV FLUSH SCH (20:30)
[2016-10-25] MEDS ORDERED: FOLIC ACID 1 MG TAB PO SCH (21:00)
[2016-10-25] MEDS ORDERED: ATENOLOL 50 MG TAB PO SCH (21:00)
[2016-10-25] MEDS ORDERED: LOSARTAN 50 MG TAB PO ONE (21:00)
--- NOTE | 2016-10-25 23:00 | EKG ---
Date Performed: 10/25/2016 Time Performed: 14:52:14 PTAGE: 76 years EKG: ATRIAL FIBRILLATION ABNORMAL RHYTHM ECG PREVIOUS TRACING : 03/25/2016 00.26 DOCTOR: Willem Millan Interpretating Date/Time 10/25/2016 22:59:25
--- NOTE | 2016-10-25 23:00 | EKG ---
Date Performed: 10/25/2016 Time Performed: 17:49:20 PTAGE: 76 years EKG: ATRIAL FIBRILLATION ABNORMAL RHYTHM ECG INTERPRETATION BASED ON A DEFAULT AGE OF 40 YEARS PREVIOUS TRACING : 10/25/2016 14.52 DOCTOR: Willem Millan Interpretating Date/Time 10/25/2016 22:59:51
[2016-10-26 00:20] VITALS: BP 108/72; PULSE 74; RESP 19; TEMP 98.3; O2SAT 94
[2016-10-26 03:42] VITALS: BP 115/72; PULSE 70; RESP 20; TEMP 98.2; O2SAT 94
[2016-10-26 07:22] LABS: INTERNATIONAL NORMALIZED RATIO 1.8 RATIO; PROTHROMBIN TIME - PATIENT 20.1 SEC (9.8-11.6)
[2016-10-26] MEDS ORDERED: ASPIRIN 325 MG TAB PO SCH (09:00)
[2016-10-26] MEDS: SODIUM CHLORIDE 0.9% FLUSH 10 ML FLUSH IV FLUSH SCH (09:00)
[2016-10-26] MEDS ORDERED: REGADENOSON INJ 0.4 MG/5 ML SYR ONE (09:20)
--- NOTE | 2016-10-26 10:54 | RADRPT ---
EXAM DATE/TIME: 10/26/2016 08:36 [place] COMPARISON: No previous studies available for comparison. INDICATIONS : Substernal chest pain for several days. Angina. Atrial fibrillation. DOSE: 27.4 mCi Tc99m Myoview at stress. 8.8 mCi Tc99m Myoview at rest. 0.4 mg Lexiscan STRESS SYMPTOMS: None noted. EJECTION FRACTION: > 70% MEDICAL HISTORY : Congestive hearrt failure. SURGICAL HISTORY : Inguinal hernia repair. ENCOUNTER: Initial ACUITY: 4 - 6 days PAIN SCALE: 8/10 LOCATION: Substernal chest TECHNIQUE: The patient underwent pharmacologic stress with infusion of prescribed dose. Continuous ECG tracing was monitored during stress. Gated SPECT imaging was performed after stress and conventional SPECT i maging was performed at rest. The examination was performed on a SPECT/CT scanner, both attenuation and non-corrected datasets were reviewed. FINDINGS: The best perfused myocardium is the lateral wall. There is diminished perfusion to the septal wall w ith normal wall motion. There is no redistribution. CONCLUSION: Negative for stress-induced ischemia. Normal wall motion with EF of greater than 70%.. RISK CATEGORY: Low (<1% Annual Mortality Rate) Adryan Motely MD FACR on October 26, 2016 at 10:50 Board Certified Radiologist. This report was verified electronically.
[2016-10-26 11:01] LABS: HEMOGLOBIN A1a 1.2 %; HEMOGLOBIN A1b 0.9 %; HEMOGLOBIN F 0.8 %; HEMOGLOBIN LA1C 1.9 %; HEMOGLOBIN P3 3.2 %
[2016-10-26] MEDS: PANTOPRAZOLE SOD 40 MG DELAYED RELEASE TAB PO SCH (11:02)
[2016-10-26] MEDS: LEVOTHYROXINE SODIUM 50 MCG TAB PO SCH (11:02)
[2016-10-26 11:19] VITALS: BP 95/58; PULSE 55; RESP 20; TEMP 97.3; O2SAT 95
--- NOTE | 2016-10-26 12:06 | HHI.DCPOC ---
Discharge Care Plan Diagnosis: (1) Chest pain (2) Chronic a-fib (3) Hypothyroidism (4) Hyperlipidemia (5) COPD (chronic obstructive pulmonary disease) Goals to Promote Your Health * To prevent worsening of your condition and complications * To maintain your health at the optimal level Directions to Meet Your Goals Take your medications as prescribed Follow your dietary instruction Follow activity as directed Keep your appointments as scheduled Take your immunizations and boosters as scheduled If your symptoms worsen call your PCP, if no PCP go to Urgent Care Center or Emergency Room Smoking is Dangerous to Your Health. Avoid second hand smoke Call the 24-hour hour crisis hotline for domestic abuse at Daniel Parsons Oct 26, 2016 12:06
[2016-10-26] MEDS ORDERED: FURO1TAB62 PO (12:49)
--- NOTE | 2016-10-26 13:15 | TR ---
Date Performed: 10/26/2016 Time Performed: 09:23:34 DOCTOR: Willem Millan DRUG LIST: CLINICAL HISTORY: REASON FOR TEST: CHEST PAIN REASON FOR ENDING: OBSERVATION: CONCLUSION: Lexiscan stress test was performed under standard four minute protocol. Radionuclide was injected one minute prior to ending the test. The patient was asymptomatic. No electrocardiograp hic abnormalities were present to suggest ischemia. Recovery was quick and uneventful. Nuclear imagin g and interpretetion are pending. COMMENTS:
[2016-10-26 14:34] VITALS: PULSE 51
== END 2016-10-26 17:21 | disposition home or self-care (01) ==
LOC: NEPE 10:34 → NEDA 12:52 → NEPGCP 15:34
PROVIDERS: ADMIT Family Medicine; ATTEND Family Medicine
DX: R07.9 Chest pain, unspecified (principal); I48.2 Chronic atrial fibrillation; E03.9 Hypothyroidism, unspecified; J44.9 Chronic obstructive pulmonary disease, unspecified; E78.5 Hyperlipidemia, unspecified; G62.9 Polyneuropathy, unspecified; Z79.01 Long term (current) use of anticoagulants; Z85.038 Personal history of other malignant neoplasm of large intestine; Z87.891 Personal history of nicotine dependence; Z85.828 Personal history of other malignant neoplasm of skin
CPT/HCPCS: 71010; 78452; 80053; 82550; 83036; 83880; 84443; 84484; 85025; 85610; 85730; 93005; 93017; 94640; 94664; 96374; 99285; A9502; G0378; J1940; J2785

== ENCOUNTER 2018-01-23 00:19 | Observation (INO) ==
[2018-01-24] MEDS ORDERED: Acetaminophen 325 MG Tablet PO PRN
[2018-01-24] MEDS ORDERED: Bisacodyl 10 MG Supp RECTAL PRN
[2018-01-24] MEDS ORDERED: Morphine Inj 4 MG/ML Vial IV.PUSH PRN
[2018-01-24] MEDS ORDERED: Warfarin Consult Pharmacy 1 EACH OTHER SCH
[2018-01-24 06:08] LABS: INR 1.9 Ratio; Prothrombin Time 19.6 sec (9.8-11.6)
[2018-01-24] MEDS: Senna/Docusate Sodium 8.6/50 MG Tablet PO SCH ×2 (08:49→21:16)
[2018-01-24 14:26] LABS: Anion Gap 7 meq/L (5-15); Blood Urea Nitrogen 15 mg/dL (7-18); Calcium 8.6 mg/dL (8.5-10.1); Chloride 95 meq/L (98-107); Glomerular Filtration Rate Greater Than 89 mL/min (>89); Glucose,Random 153 mg/dL (74-106); Magnesium 2.1 mg/dL (1.5-2.5); Potassium 3.9 meq/L (3.5-5.1); Sodium 136 meq/L (136-145)
--- NOTE | 2018-01-24 18:08 | P.DCO ---
- Diagnosis (1) CHF (congestive heart failure) - Physical Therapy Order: Evaluate and treat, Improve ambulation, Strength and gait training - Certification I have seen patient Torsten Segura on 01/24/18. My clinical findings support the need for the requested home health care services because: Patient has SOB I certify that my clinical findings support that this patient is homebound because: Poor cardiac reserve (1) CHF (congestive heart failure) Qualifiers: Heart failure type: diastolic Heart failure chronicity: acute on chronic Qualified Code(s): I50.33 - Acute on chronic diastolic (congestive) heart failure
--- NOTE | 2018-01-24 18:12 | P.PN ---
Subjective Interval history: Follow-up CHF. Improving dyspnea however has not been out of bed today. Still on 3 L nasal cannula. Physical Exam Vital signs: Vital Signs 01/23/18 23:00 01/24/18 00:00 01/24/18 01:00 Temperature Pulse Rate 84 72 64 Respiratory Rate Blood Pressure Pulse Oximetry Pulse Oximetry [Resting on Room Air] Pulse Oximetry [Resting with Oxygen] 01/24/18 02:00 01/24/18 03:00 01/24/18 03:20 Temperature 97.7 F Pulse Rate 64 76 71 Respiratory Rate 16 Blood Pressure 111/70 Pulse Oximetry 98 Pulse Oximetry [Resting on Room Air] Pulse Oximetry [Resting with Oxygen] 01/24/18 04:00 01/24/18 05:00 01/24/18 06:00 Temperature Pulse Rate 56 L 72 71 Respiratory Rate Blood Pressure Pulse Oximetry Pulse Oximetry [Resting on Room Air] Pulse Oximetry [Resting with Oxygen] 01/24/18 07:00 01/24/18 07:52 01/24/18 08:00 Temperature 97.9 F Pulse Rate 73 64 95 H Respiratory Rate 18 18 Blood Pressure 124/79 Pulse Oximetry 95 96 Pulse Oximetry [Resting on Room Air] Pulse Oximetry [Resting with Oxygen] 01/24/18 09:00 01/24/18 10:00 01/24/18 11:00 Temperature 97.8 F Pulse Rate 88 84 89 Respiratory Rate 20 Blood Pressure 113/74 Pulse Oximetry 94 L Pulse Oximetry [Resting on Room Air] Pulse Oximetry [Resting with Oxygen] 01/24/18 12:00 01/24/18 12:23 01/24/18 13:00 Temperature Pulse Rate 69 74 97 H Respiratory Rate 19 Blood Pressure Pulse Oximetry Pulse Oximetry [Resting on Room Air] 83 L Pulse Oximetry [Resting with Oxygen] 94 L 01/24/18 14:00 01/24/18 15:00 01/24/18 15:51 Temperature 98.0 F Pulse Rate 89 83 83 Respiratory Rate 18 18 Blood Pressure 127/80 Pulse Oximetry 95 Pulse Oximetry [Resting on Room Air] Pulse Oximetry [Resting with Oxygen] 01/24/18 16:00 01/24/18 17:00 01/24/18 18:00 Temperature Pulse Rate 97 H 103 H 117 H Respiratory Rate Blood Pressure Pulse Oximetry Pulse Oximetry [Resting on Room Air] Pulse Oximetry [Resting with Oxygen] Intake & Output 01/23/18 01/24/18 01/24/18 18:59 06:59 18:59 Intake Total 960 / 960 Output Total 1400 / 1400 Balance -440 / -440 Weight 92.3 kg Intake: Oral 960 / 960 Output: Urine 1400 / 1400 Narrative: GENERAL: Pleasant elderly white male in no acute distress. On NC, mild dyspnea w / speech HEENT: PERRLA, EOMI. No scleral icterus or conjunctival pallor. No lid lag or facial droop. CARDIOVASCULAR: Regular rate and rhythm. No obvious murmurs to auscultation. No chest tenderness to palpation. RESPIRATORY: No obvious rhonchi or wheezing. Minimal rales at bases bilaterally. GASTROINTESTINAL: Abdomen soft, non-tender, nondistended. BS normal. MUSCULOSKELETAL: Extremities without clubbing, cyanosis. Minimal edema. No obvious deformities. NEUROLOGICAL: Awake, alert and oriented x4. No focal neurologic deficits. Moving both upper and lower extremities spontaneously. Results - Labs CBC & Chem 7: 01/23/18 08:55 01/24/18 11:44 Laboratory Results - last 24 hr 01/22/18 01/22/18 01/22/18 22:32 22:32 22:32 WBC RBC Hgb Hct MCV MCH MCHC RDW Plt Count MPV Neut % (Auto) Lymph % (Auto) [place] % (Auto) Eos % (Auto) Baso % (Auto) Neut # (Auto) Lymph # (Auto) [place] # (Auto) Eos # (Auto) Baso # (Auto) CBC Comment PT 16.6 H INR 1.6 APTT 33.6 H Sodium 139 Potassium 4.2 Chloride 102 Carbon Dioxide 28.7 Anion Gap 8 BUN 13 Creatinine 0.87 Estimated GFR 85 L Random Glucose 112 H Calcium 8.5 Magnesium Total Bilirubin 0.5 AST 16 ALT 17 Alkaline Phosphatase 75 Total Creatine Kinase 58 Troponin I 0.02 B-Natriuretic Peptide 100 Total Protein 6.7 Albumin 2.8 L 01/22/18 01/23/18 01/23/18 22:32 08:55 08:55 WBC 8.3 RBC 4.59 Hgb 15.4 Hct 45.7 MCV 99.4 MCH 33.5 MCHC 33.7 RDW 14.7 Plt Count 182 MPV 8.3 Neut % (Auto) 69.9 Lymph % (Auto) 16.7 [place] % (Auto) 9.3 H Eos % (Auto) 3.7 Baso % (Auto) 0.4 Neut # (Auto) 5.8 Lymph # (Auto) 1.4 [place] # (Auto) 0.8 Eos # (Auto) 0.3 Baso # (Auto) 0.0 CBC Comment DIFF FINAL PT 17.6 H INR 1.7 APTT Sodium 138 Potassium 4.3 Chloride 99 Carbon Dioxide 32.2 H Anion Gap 7 BUN 12 Creatinine 0.89 Estimated GFR 83 L Random Glucose 126 H Calcium 8.6 Magnesium Total Bilirubin 1.3 H AST 14 L ALT 18 Alkaline Phosphatase 81 Total Creatine Kinase Troponin I LESS THAN 0.02 L B-Natriuretic Peptide Total Protein 7.1 Albumin 3.0 L 01/23/18 01/23/18 01/24/18 08:55 13:03 04:06 WBC 7.5 RBC 4.65 Hgb 15.6 Hct 46.6 MCV 100.2 H MCH 33.6 MCHC 33.6 RDW 14.9 Plt Count 182 MPV 7.9 Neut % (Auto) 69.6 Lymph % (Auto) 16.7 [place] % (Auto) 10.7 H Eos % (Auto) 2.8 Baso % (Auto) 0.2 Neut # (Auto) 5.2 Lymph # (Auto) 1.2 [place] # (Auto) 0.8 Eos # (Auto) 0.2 Baso # (Auto) 0.0 CBC Comment DIFF FINAL PT 19.6 H INR 1.9 APTT Sodium Potassium Chloride Carbon Dioxide Anion Gap BUN Creatinine Estimated GFR Random Glucose Calcium Magnesium Total Bilirubin AST ALT Alkaline Phosphatase Total Creatine Kinase Troponin I LESS THAN 0.02 L B-Natriuretic Peptide Total Protein Albumin 01/24/18 11:44 WBC RBC Hgb Hct MCV MCH MCHC RDW Plt Count MPV Neut % (Auto) Lymph % (Auto) [place] % (Auto) Eos % (Auto) Baso % (Auto) Neut # (Auto) Lymph # (Auto) [place] # (Auto) Eos # (Auto) Baso # (Auto) CBC Comment PT INR APTT Sodium 136 Potassium 3.9 Chloride 95 L Carbon Dioxide 34.0 H Anion Gap 7 BUN 15 Creatinine 0.80 Estimated GFR Greater than 89 Random Glucose 153 H Calcium 8.6 Magnesium 2.1 Total Bilirubin AST ALT Alkaline Phosphatase Total Creatine Kinase Troponin I B-Natriuretic Peptide Total Protein Albumin Assessment and Plan - Assessment (1) CHF (congestive heart failure) Code(s): I50.9 - Heart failure, unspecified Status: Acute - Plan 1. CHF: Acute on Chronic. Diastolic. Echo 03/08/16 w/ EF 60%, recently taken off of Lasix by PCP approx 1wk ago, BNP 100, CXR read as stable, however images reviewed, appears to have some pulmonary congestion. Repeat echocardiogram EF of 55%. Improving slowly continue IV diuresis. CHF education, I/O and monitor weight 2. Chest Pain: Likely secondary to above, currently chest pain free. Ruled out for [place], NTG/Morphine prn. 3. A-fib: On Coumadin. I repeat INR in am. 4. COPD. No active wheezing continue Duonebs home dose DVT Prophylaxis: On Coumadin as above Discharge Planning dc in 1-2 days needs IV duiresis Will need home oxygen, with a walker and home care PT (1) CHF (congestive heart failure) Qualifiers: Heart failure type: diastolic Heart failure chronicity: acute on chronic Qualified Code(s): I50.33 - Acute on chronic diastolic (congestive) heart failure
[2018-01-24] MEDS: Atenolol 50 MG Tablet PO SCH (21:16)
[2018-01-25 07:37] LABS: Anion Gap 7 meq/L (5-15); Blood Urea Nitrogen 16 mg/dL (7-18); Calcium 8.7 mg/dL (8.5-10.1); Carbon Dioxide 34.7 meq/L (21.0-32.0); Chloride 92 meq/L (98-107); Glomerular Filtration Rate Greater Than 89 mL/min (>89); Glucose,Random 109 mg/dL (74-106); Potassium 4.2 meq/L (3.5-5.1); Sodium 134 meq/L (136-145)
[2018-01-25] MEDS: Senna/Docusate Sodium 8.6/50 MG Tablet PO SCH ×2 (08:35→21:34)
--- NOTE | 2018-01-25 09:33 | P.PN ---
Subjective Interval history: Follow-up CHF with hypoxia. Worsening hypoxia now requiring 5 L. He had some wheezing. 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 Clements Physical Exam Vital signs: Vital Signs 01/24/18 10:00 01/24/18 11:00 01/24/18 12:00 Temperature 97.8 F Pulse Rate 84 89 69 Respiratory Rate 20 Blood Pressure 113/74 Pulse Oximetry 94 L Pulse Oximetry [Resting on Room Air] Pulse Oximetry [Resting with Oxygen] 01/24/18 12:23 01/24/18 13:00 01/24/18 14:00 Temperature Pulse Rate 74 97 H 89 Respiratory Rate 19 Blood Pressure Pulse Oximetry Pulse Oximetry [Resting on Room Air] 83 L Pulse Oximetry [Resting with Oxygen] 94 L 01/24/18 15:00 01/24/18 15:51 01/24/18 16:00 Temperature 98.0 F Pulse Rate 83 83 97 H Respiratory Rate 18 18 Blood Pressure 127/80 Pulse Oximetry 95 Pulse Oximetry [Resting on Room Air] Pulse Oximetry [Resting with Oxygen] 01/24/18 17:00 01/24/18 18:00 01/24/18 19:00 Temperature Pulse Rate 103 H 117 H 123 H Respiratory Rate Blood Pressure Pulse Oximetry Pulse Oximetry [Resting on Room Air] Pulse Oximetry [Resting with Oxygen] 01/24/18 19:19 01/24/18 19:38 01/24/18 19:51 Temperature 97.5 F L Pulse Rate 107 H 124 H Respiratory Rate 18 24 Blood Pressure 109/65 Pulse Oximetry 98 94 L 94 L Pulse Oximetry [Resting on Room Air] Pulse Oximetry [Resting with Oxygen] 01/24/18 20:00 01/24/18 21:00 01/24/18 22:00 Temperature Pulse Rate 100 H 102 H 109 H Respiratory Rate Blood Pressure Pulse Oximetry Pulse Oximetry [Resting on Room Air] Pulse Oximetry [Resting with Oxygen] 01/24/18 23:00 01/24/18 23:14 01/25/18 00:00 Temperature 98.0 F Pulse Rate 110 H 92 H 81 Respiratory Rate 22 Blood Pressure 119/71 Pulse Oximetry 92 L Pulse Oximetry [Resting on Room Air] Pulse Oximetry [Resting with Oxygen] 01/25/18 01:00 01/25/18 02:00 01/25/18 03:00 Temperature Pulse Rate 76 70 65 Respiratory Rate Blood Pressure Pulse Oximetry Pulse Oximetry [Resting on Room Air] Pulse Oximetry [Resting with Oxygen] 01/25/18 03:59 01/25/18 04:00 01/25/18 05:00 Temperature 98.2 F Pulse Rate 73 72 65 Respiratory Rate 20 Blood Pressure 104/70 Pulse Oximetry 97 Pulse Oximetry [Resting on Room Air] Pulse Oximetry [Resting with Oxygen] 01/25/18 06:00 01/25/18 07:00 01/25/18 08:00 Temperature 97.7 F Pulse Rate 67 84 94 H Respiratory Rate 18 Blood Pressure 116/74 Pulse Oximetry 98 Pulse Oximetry [Resting on Room Air] Pulse Oximetry [Resting with Oxygen] 01/25/18 08:05 01/25/18 09:00 Temperature Pulse Rate 83 82 Respiratory Rate 15 Blood Pressure Pulse Oximetry 97 Pulse Oximetry [Resting on Room Air] Pulse Oximetry [Resting with Oxygen] Intake & Output 01/24/18 01/25/18 01/25/18 18:59 06:59 18:59 Intake Total 960 / 960 480 / 480 Output Total 1400 / 1400 850 / 850 Balance -440 / -440 -370 / -370 Weight 92.3 kg 91.5 kg Intake: Oral 960 / 960 480 / 480 Output: Urine 1400 / 1400 850 / 850 Narrative: GENERAL: Pleasant elderly white male in no acute distress. On NC, mild dyspnea w / speech HEENT: PERRLA, EOMI. No scleral icterus or conjunctival pallor. No lid lag or facial droop. CARDIOVASCULAR: Regular rate and rhythm. No obvious murmurs to auscultation. No chest tenderness to palpation. RESPIRATORY: Occasional rhonchi. Minimal rales at bases bilaterally. GASTROINTESTINAL: Abdomen soft, non-tender, nondistended. BS normal. MUSCULOSKELETAL: Extremities without clubbing, cyanosis. Minimal edema. No obvious deformities. NEUROLOGICAL: Awake, alert and oriented x4. No focal neurologic deficits. Moving both upper and lower extremities spontaneously. Results - Labs CBC & Chem 7: 01/23/18 08:55 01/25/18 05:32 Laboratory Results - last 24 hr 01/24/18 01/25/18 11:44 05:32 Sodium 136 134 L Potassium 3.9 4.2 Chloride 95 L 92 L Carbon Dioxide 34.0 H 34.7 H Anion Gap 7 7 BUN 15 16 Creatinine 0.80 0.83 Estimated GFR Greater than 89 Greater than 89 Random Glucose 153 H 109 H Calcium 8.6 8.7 Magnesium 2.1 2.0 - Procedures none Assessment and Plan - Assessment (1) CHF (congestive heart failure) Code(s): I50.9 - Heart failure, unspecified Status: Acute - Plan 1. CHF with hypoxia: Acute on Chronic. Diastolic. Echo 03/08/16 w/ EF 60%, recently taken off of Lasix by PCP approx 1wk ago, BNP 100, CXR read as stable, however images reviewed, appears to have some pulmonary congestion. Repeat echocardiogram EF of 55%. Worsening hypoxia likely contributed by COPD exacerbation. Increase IV Lasix to 40 mg every 12 hours. CHF education, I/O and monitor weight 2. Chest Pain: Likely secondary to above, currently chest pain free. Ruled out for [place], NTG/Morphine prn. Negative Lexiscan October 2016. 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 A-fib: On Coumadin. Rpt INR 4. COPD exacerbation. Add prednisone and continue Duonebs home dose. Wean oxygen keep saturation at least 92%. Increase activity DVT Prophylaxis: On Coumadin as above Discharge Planning dc in 1-2 days needs IV duiresis Will need home oxygen, with a walker and home care PT (1) CHF (congestive heart failure) Qualifiers: Heart failure type: diastolic Heart failure chronicity: acute on chronic Qualified Code(s): I50.33 - Acute on chronic diastolic (congestive) heart failure
[2018-01-25] MEDS: predniSONE 20 MG Tablet PO SCH (11:52)
[2018-01-25 13:19] LABS: INR 1.8 Ratio; Prothrombin Time 18.1 sec (9.8-11.6)
[2018-01-25] MEDS: Budesonide-Formoterol 160/4.5 MCG 6 GM Inhaler INH SCH (21:34)
[2018-01-25] MEDS: Atenolol 50 MG Tablet PO SCH (21:34)
[2018-01-26 06:35] LABS: INR 1.9 Ratio; Prothrombin Time 19.4 sec (9.8-11.6)
[2018-01-26 06:54] LABS: Calcium 8.9 mg/dL (8.5-10.1); Carbon Dioxide 33.1 meq/L (21.0-32.0)
[2018-01-26] MEDS: predniSONE 20 MG Tablet PO SCH (09:10)
[2018-01-26] MEDS: Senna/Docusate Sodium 8.6/50 MG Tablet PO SCH (09:11)
[2018-01-26] MEDS: Budesonide-Formoterol 160/4.5 MCG 6 GM Inhaler INH SCH ×2 (09:11→20:45)
--- NOTE | 2018-01-26 10:30 | MB ---
cc: Sydney Dale MD DATE: 01/25/2018 REASON FOR CONSULTATION: Chronic obstructive pulmonary disease and hypoxia. HISTORY OF PRESENT ILLNESS: This is a 77-year-old white male with a history of hypertension, atrial fibrillation and a history of COPD with CHF, who was admitted with complaints of shortness of breath and lower chest pains. The patient was orthopneic and has been receiving diuretics in the past, but was off of it and he developed substernal chest pain with some dyspnea and thus came to the emergency room. Upon arrival, he was placed on oxygen via nasal cannula and was on BiPAP. The patient had a troponin of 0.02 and a chest x-ray showed no active pulmonary infiltrates. The patient has been coughing up a little whitish mucus and has been on oxygen since admission to maintain saturations over 92. PAST MEDICAL HISTORY: Includes history of colon cancer with resection, history of COPD with chronic bronchitis, history of atrial fibrillation, on anticoagulation, history of CHF. PAST SURGICAL HISTORY: Includes hernia repair. HABITS: The patient smoked in the past for over 25 years a pack a day. Alcohol use, occasional. FAMILY HISTORY: Noncontributory. ALLERGIES: NO DRUG ALLERGIES WERE LISTED. REVIEW OF SYSTEMS: The patient has chest pain, but no leg swelling. He has had wheezing, shortness of breath and orthopnea. He has had epigastric distress with reflux. He has no urinary symptoms. He has joint pains and denies anxiety. No depression. ALLERGIES: NONE. PHYSICAL EXAMINATION: GENERAL: This elderly averagely built white male is alert and oriented in no acute distress. No pallor, cyanosis. No clubbing. No peripheral edema. VITAL SIGNS: His blood pressure is 148/80, pulse is 70, respirations 16, temperature 97.8. HEENT: Head is normocephalic. Pupils are reactive and equal. Tongue is moist. Throat is mildly injected. Ears, no inflammation. NECK: No bruits. No thyroid enlargement. CHEST: Equal movements with decreased excursions and breath sounds are diminished at the bases with wheezes throughout both lung murrell, prolonged expirations. HEART: Heart sounds regular, S1, S2. No murmur. No S3. ABDOMEN: Soft, protuberant without masses. No organomegaly or tenderness. EXTREMITIES: No edema. Peripheral pulses are diminished. Reflexes are 1+. There were no gross motor or sensory deficits. Cranial nerves grossly intact. SKIN: No lesions observed. IMPRESSION: 1. Chronic obstructive pulmonary disease with chronic bronchitis and acute exacerbation. 2. Atrial fibrillation today essentially. 3. Chest pain. 4. History of congestive heart failure. PLAN: The patient will be continued on diuretics and O2 at 2 liters nasal cannula. Nebulized DuoNeb solution added q.i.d. and p.r.n. and the Symbicort inhaler 160/4.5 two puffs twice a day. Followup chest x-ray will be obtained and sputum sent for Gram stain and culture. If cardiac status is stable, we could possibly switch him to p.o. medications and discharge him for outpatient followup. Thank you, Dr. Wang, for this consultation. V. Leslie Dale MD VJD/DL , 10:05 AM , 10:28 AM
--- NOTE | 2018-01-26 12:50 | P.PN ---
Subjective Interval history: He is still SOB and has some cough with wheezing. Output was good. On O2 at 2 L. Physical Exam Vital signs: Vital Signs 01/25/18 13:00 01/25/18 14:00 01/25/18 15:00 Temperature 97.8 F Pulse Rate 98 H 97 H 89 Respiratory Rate 18 Blood Pressure 110/77 Pulse Oximetry 97 01/25/18 15:59 01/25/18 16:00 01/25/18 17:00 Temperature Pulse Rate 106 H 115 H 100 H Respiratory Rate 20 Blood Pressure Pulse Oximetry 01/25/18 17:21 01/25/18 19:00 01/25/18 20:00 Temperature 98.3 F Pulse Rate 102 H 124 H 104 H Respiratory Rate 20 Blood Pressure 122/78 Pulse Oximetry 95 01/25/18 21:00 01/25/18 21:19 01/25/18 22:00 Temperature Pulse Rate 104 H 111 H 108 H Respiratory Rate 19 Blood Pressure Pulse Oximetry 90 L 01/25/18 23:00 01/26/18 00:00 01/26/18 01:00 Temperature 97.9 F Pulse Rate 94 H 80 81 Respiratory Rate 20 Blood Pressure 113/72 Pulse Oximetry 98 01/26/18 02:00 01/26/18 03:00 01/26/18 04:00 Temperature 98.2 F Pulse Rate 83 70 73 Respiratory Rate 16 Blood Pressure 108/73 Pulse Oximetry 94 L 01/26/18 05:00 01/26/18 06:00 01/26/18 07:00 Temperature 97.6 F Pulse Rate 74 71 79 Respiratory Rate 18 Blood Pressure 125/78 Pulse Oximetry 79 L 01/26/18 07:57 01/26/18 08:00 01/26/18 09:00 Temperature Pulse Rate 83 66 76 Respiratory Rate 17 Blood Pressure Pulse Oximetry 96 01/26/18 10:00 01/26/18 11:00 01/26/18 12:00 Temperature 97.8 F Pulse Rate 76 96 H 90 Respiratory Rate 20 Blood Pressure 114/83 Pulse Oximetry 96 Intake & Output 01/25/18 01/26/18 01/26/18 18:59 06:59 18:59 Intake Total 720 / 720 480 / 480 Output Total 1000 / 1000 200 / 200 Balance -280 / -280 280 / 280 Weight 85.2 kg Intake: Oral 720 / 720 480 / 480 Output: Urine 1000 / 1000 200 / 200 Other: # Voids 3 Date of Last Bowel Movement 01/26/18 # Bowel Movements 0 3 Narrative: GENERAL: Alert and oriented SKIN: Warm and dry. HEAD: Normocephalic. EYES: No scleral icterus. No injection or drainage. NECK: Supple, trachea midline. No JVD or lymphadenopathy. CARDIOVASCULAR: Irregular rate and rhythm without murmurs, gallops, or rubs. RESPIRATORY: Breath sounds equal bilaterally. Basal Crackles and wheeze all over. GASTROINTESTINAL: Abdomen soft, non-tender, nondistended. MUSCULOSKELETAL: No cyanosis,but has 1 + edema. BACK: Nontender without obvious deformity. No CVA tenderness. Results - Labs CBC & Chem 7: 01/23/18 08:55 01/26/18 05:02 Laboratory Results - last 24 hr 01/25/18 01/26/18 01/26/18 12:38 05:02 05:02 PT 18.1 H 19.4 H INR 1.8 1.9 Sodium 130 L Potassium 4.0 Chloride 89 L Carbon Dioxide 33.1 H Anion Gap 8 BUN 24 H Creatinine 0.96 Estimated GFR 76 L Random Glucose 115 H Calcium 8.9 - Procedures none Assessment and Plan - Assessment (1) CHF (congestive heart failure) Code(s): I50.9 - Heart failure, unspecified Status: Acute (2) COPD (chronic obstructive pulmonary disease) Code(s): J44.9 - Chronic obstructive pulmonary disease, unspecified Status: Acute - Plan 1. O2 at 3 L N/C 2. Continue prednisone 40 mg daily. 3. Continue lasix 40 mg daily. 4. Duonebs qid. 5. Arrange home O2 at 2 L 6. CBC,BMP in am. (1) CHF (congestive heart failure) Qualifiers: Heart failure type: diastolic Heart failure chronicity: acute on chronic Qualified Code(s): I50.33 - Acute on chronic diastolic (congestive) heart failure (2) COPD (chronic obstructive pulmonary disease) Qualifiers: COPD type: COPD with acute exacerbation Qualified Code(s): J44.1 - Chronic obstructive pulmonary disease with (acute) exacerbation
--- NOTE | 2018-01-26 15:56 | P.PN ---
Subjective Interval history: Follow up for CHF, dyspnea. Patient is currently doing better. His currently on 3 L of oxygen via nasal cannula. Denies any chest pain, fever or chills. Tolerating diet well. Physical Exam Vital signs: Vital Signs 01/25/18 15:59 01/25/18 16:00 01/25/18 17:00 Temperature Pulse Rate 106 H 115 H 100 H Respiratory Rate 20 Blood Pressure Pulse Oximetry 01/25/18 17:21 01/25/18 19:00 01/25/18 20:00 Temperature 98.3 F Pulse Rate 102 H 124 H 104 H Respiratory Rate 20 Blood Pressure 122/78 Pulse Oximetry 95 01/25/18 21:00 01/25/18 21:19 01/25/18 22:00 Temperature Pulse Rate 104 H 111 H 108 H Respiratory Rate 19 Blood Pressure Pulse Oximetry 90 L 01/25/18 23:00 01/26/18 00:00 01/26/18 01:00 Temperature 97.9 F Pulse Rate 94 H 80 81 Respiratory Rate 20 Blood Pressure 113/72 Pulse Oximetry 98 01/26/18 02:00 01/26/18 03:00 01/26/18 04:00 Temperature 98.2 F Pulse Rate 83 70 73 Respiratory Rate 16 Blood Pressure 108/73 Pulse Oximetry 94 L 01/26/18 05:00 01/26/18 06:00 01/26/18 07:00 Temperature 97.6 F Pulse Rate 74 71 79 Respiratory Rate 18 Blood Pressure 125/78 Pulse Oximetry 79 L 01/26/18 07:57 01/26/18 08:00 01/26/18 09:00 Temperature Pulse Rate 83 66 76 Respiratory Rate 17 Blood Pressure Pulse Oximetry 96 01/26/18 10:00 01/26/18 11:00 01/26/18 12:00 Temperature 97.8 F Pulse Rate 76 96 H 90 Respiratory Rate 20 Blood Pressure 114/83 Pulse Oximetry 96 01/26/18 13:00 01/26/18 14:00 01/26/18 15:00 Temperature 98.3 F Pulse Rate 76 72 85 Respiratory Rate 20 Blood Pressure 107/72 Pulse Oximetry 94 L Intake & Output 01/25/18 01/26/18 01/26/18 18:59 06:59 18:59 Intake Total 720 / 720 480 / 480 Output Total 1000 / 1000 200 / 200 Balance -280 / -280 280 / 280 Weight 85.2 kg Intake: Oral 720 / 720 480 / 480 Output: Urine 1000 / 1000 200 / 200 Other: # Voids 3 Date of Last Bowel Movement 01/26/18 # Bowel Movements 0 3 Narrative: GENERAL: Alert, oriented 3, NAD. Currently on 3 L of oxygen via nasal cannula. SKIN: Warm and dry. HEAD: Normocephalic. EYES: No scleral icterus. No injection or drainage. NECK: Supple, trachea midline. No JVD or lymphadenopathy. CARDIOVASCULAR: Regular rate and rhythm without murmurs, gallops, or rubs. RESPIRATORY: Moderate air entry, diffuse crackles throughout the lung murrell. GASTROINTESTINAL: Abdomen soft, non-tender, nondistended. MUSCULOSKELETAL: No cyanosis, or edema. BACK: Nontender without obvious deformity. No CVA tenderness. Results - Labs CBC & Chem 7: 01/23/18 08:55 01/26/18 05:02 Laboratory Results - last 24 hr 01/26/18 01/26/18 05:02 05:02 PT 19.4 H INR 1.9 Sodium 130 L Potassium 4.0 Chloride 89 L Carbon Dioxide 33.1 H Anion Gap 8 BUN 24 H Creatinine 0.96 Estimated GFR 76 L Random Glucose 115 H Calcium 8.9 - Procedures none Assessment and Plan - Assessment (1) CHF (congestive heart failure) Code(s): I50.9 - Heart failure, unspecified Status: Acute - Plan 1. CHF with hypoxia: Acute on Chronic. Diastolic. Echo 03/08/16 w/ EF 60%, recently taken off of Lasix by PCP approx 1wk ago, BNP 100, CXR read as stable, however images reviewed, appears to have some pulmonary congestion. Repeat echocardiogram EF of 55%. Worsening hypoxia likely contributed by COPD exacerbation. Continue IV Lasix to 40 mg every 12 hours. CHF education, I/O and monitor weight. Will consider Torsemide upon discharge. 2. Chest Pain: Likely secondary to above, currently chest pain free. Ruled out for LA, NTG/Morphine prn. Negative Lexiscan October 2016. Follow-up with his technical specialist 3. A-fib: On Coumadin. INR today 1.9. 4. COPD exacerbation. Add prednisone and continue Duonebs home dose. Dr. Hamzah Jimenez (Pulmonary) evaluated patient. Walk test reveals need for Home O2. Full code. Warfarin. Discharge Plan: Probable discharge tomorrow with home O2. (1) CHF (congestive heart failure) Qualifiers: Heart failure type: diastolic Heart failure chronicity: acute on chronic Qualified Code(s): I50.33 - Acute on chronic diastolic (congestive) heart failure
[2018-01-26] MEDS: Atenolol 50 MG Tablet PO SCH (20:44)
[2018-01-27 09:08] LABS: INR 2.4 Ratio
[2018-01-27] MEDS: predniSONE 20 MG Tablet PO SCH (09:16)
[2018-01-27] MEDS: Budesonide-Formoterol 160/4.5 MCG 6 GM Inhaler INH SCH (09:16)
[2018-01-27] MEDS: Senna/Docusate Sodium 8.6/50 MG Tablet PO SCH ×2 (09:17→09:26)
--- NOTE | 2018-01-27 14:03 | P.PN ---
Subjective Interval history: He is SOB at rest and on o2 3 L. he will need home O2 and nebulizer. Leg edema is less. Physical Exam Vital signs: Vital Signs 01/26/18 14:00 01/26/18 15:00 01/26/18 16:00 Temperature 98.3 F Pulse Rate 72 85 80 Respiratory Rate 20 Blood Pressure 107/72 Pulse Oximetry 94 L 01/26/18 16:02 01/26/18 17:00 01/26/18 18:00 Temperature Pulse Rate 99 H 94 H 96 H Respiratory Rate 18 Blood Pressure Pulse Oximetry 01/26/18 19:00 01/26/18 20:00 01/26/18 20:25 Temperature 97.8 F Pulse Rate 84 85 96 H Respiratory Rate 20 17 Blood Pressure 120/70 Pulse Oximetry 95 01/26/18 21:00 01/26/18 22:00 01/26/18 23:00 Temperature 97.8 F Pulse Rate 76 79 65 Respiratory Rate 18 20 Blood Pressure 117/75 Pulse Oximetry 95 01/27/18 00:00 01/27/18 01:00 01/27/18 02:00 Temperature Pulse Rate 74 64 65 Respiratory Rate Blood Pressure Pulse Oximetry 01/27/18 03:00 01/27/18 04:00 01/27/18 05:00 Temperature Pulse Rate 70 58 L 67 Respiratory Rate 20 Blood Pressure 124/79 Pulse Oximetry 94 L 01/27/18 06:00 01/27/18 06:05 01/27/18 07:00 Temperature 98.2 F Pulse Rate 69 59 L 70 Respiratory Rate 20 Blood Pressure 107/66 Pulse Oximetry 98 01/27/18 07:46 01/27/18 08:00 01/27/18 09:00 Temperature Pulse Rate 77 72 90 Respiratory Rate 19 Blood Pressure Pulse Oximetry 95 01/27/18 10:00 01/27/18 11:00 01/27/18 11:22 Temperature Pulse Rate 79 76 94 H Respiratory Rate 19 Blood Pressure Pulse Oximetry 01/27/18 12:00 Temperature 98.1 F Pulse Rate 85 Respiratory Rate 20 Blood Pressure 110/69 Pulse Oximetry 96 Intake & Output 01/26/18 01/27/18 01/27/18 18:59 06:59 18:59 Intake Total 1200 / 1200 1334 / 1334 Output Total 600 / 600 1000 / 1000 Balance 600 / 600 334 / 334 Weight 85 kg Intake: Oral 1200 / 1200 1200 / 1200 Other 134 / 134 Output: Urine 600 / 600 1000 / 1000 Other: # Voids 3 Date of Last Bowel Movement 01/26/18 01/27/18 # Bowel Movements 3 Narrative: GENERAL: Alert and oriented SKIN: Warm and dry. HEAD: Normocephalic. EYES: No scleral icterus. No injection or drainage. NECK: Supple, trachea midline. No JVD or lymphadenopathy. CARDIOVASCULAR: Irregular rate and rhythm without murmurs, gallops, or rubs. RESPIRATORY: Breath sounds equal bilaterally. Basal Crackles and mild wheeze heard. GASTROINTESTINAL: Abdomen soft, non-tender, nondistended. MUSCULOSKELETAL: No cyanosis,but has 1 + edema. BACK: Nontender without obvious deformity. No CVA tenderness. Results - Labs CBC & Chem 7: 01/23/18 08:55 01/26/18 05:02 Laboratory Results - last 24 hr 01/24/18 01/27/18 11:44 08:51 PT 24.0 H INR 2.4 Troponin I Less than 0.02 L - Procedures none Assessment and Plan - Assessment (1) CHF (congestive heart failure) Code(s): I50.9 - Heart failure, unspecified Status: Acute (2) COPD (chronic obstructive pulmonary disease) Code(s): J44.9 - Chronic obstructive pulmonary disease, unspecified Status: Acute - Plan 1. O2 at 3 L N/C and Arrange home O2 2. Taper prednisone to 30 mg daily. 3. Continue lasix 40 mg daily. 4. Duonebs qid. 5. Get home nebulizer. 6. Symbicort 160/4.5 mcg , 2puffs BID 7. OK to go Home and will F/U in 2 weeks. (1) CHF (congestive heart failure) Qualifiers: Heart failure type: diastolic Heart failure chronicity: acute on chronic Qualified Code(s): I50.33 - Acute on chronic diastolic (congestive) heart failure (2) COPD (chronic obstructive pulmonary disease) Qualifiers: COPD type: COPD with acute exacerbation Qualified Code(s): J44.1 - Chronic obstructive pulmonary disease with (acute) exacerbation
--- NOTE | 2018-01-27 16:33 | P.DS ---
Date of admission: 01/23/18 00:20 Primary care physician: Althea Lam MD Brief History from admission: This is a 77-year-old male with PMH of HTN, A. fib on Coumadin, Colon CA, COPD and CHF (Echo 03/08/16 w/ EF 60%) who presented to the ER w/ complaints of significant SOB and chest pain. States symptoms started yesterday morning but "thought it would go away". States he follows w/ [facility] [employer] [facility] Staff Editor as outpatient but cannot recall their names, was seen by PCP recently and taken off of Lasix after 15lb weight loss. Today w/ significant SOB and chest pain. Pain is substernal, severe, 8/10, worse w/ inspiration, non -radiating. On arrival, BP 156/70, HR 89, O2 sat 95% on 5 mL NC with significant tachypnea, RR 48. Placed on BIPAP w/ significant improvement, s/p Lasix and NTG, now weaned off of BIPAP, O2 sat 97% on 3L NC. Pt denies SOB or chest pain at this time, states he is back to baseline. CBC unremarkable. Chemistry essentially unremarkable. Troponin 0.02. INR 1.6. CXR stable appearance. DS: Diagnosis - Discharge Diagnosis (1) CHF (congestive heart failure) Status: Acute DS: Medications - Discharge Medications Prescriptions: albuterol sulfate [Ventolin HFA] 2 puff INH Q6H PRN 30 Days g PRN Reason: Shortness Of Breath budesonide-formoterol [Symbicort] 2 puff INH BID 30 Days g gabapentin 100 mg PO TID #90 cap ipratropium bromide 0.5 mg INHALATION Q4H PRN 30 Days ml PRN Reason: Dyspnea levofloxacin [Levaquin] 750 mg PO DAILY #7 tab torsemide 10 mg PO DAILY #30 tab DS: Summary Hospital Course: Mr. Segura is a pleasant 77-year-old male with a history of hypertension, atrial fibrillation, COPD, colon cancer who presented to the emergency department on 01/23/2018 due to shortness of breath and chest pain. He is on warfarin due to atrial fibrillation. Chest x-ray on admission was unremarkable. His BNP was 100. Patient was started on IV Lasix. 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 His lung exams are consistent with possible interstitial lung disease. He also reported smoking history about 10 years. COPD is also a possibility of his respiratory problems. His BNP was not very impressive with 100. However with breathing treatment and Lasix as well as prednisone patient improved. He was evaluated by his public services librarian Dr. Dale. After walk test, case management arranged home oxygen for the patient. On the day of discharge I discussed at length with patient and his regarding pulmonary issues versus cardiac issues. Patient does have possible diastolic heart failure. He also has pulmonary hypertension. However overall pulmonary issues are likely the reason for his respiratory failure. He plans to follow-up with his public services librarian within 2-3 weeks after discharge. We also discussed about switching warfarin to 1 of the newer oral medication such as apixaban. He plans to discuss with his primary care doctor as well as pain management nurse regarding anticoagulation. Patient was subsequently discharged home with prednisone, Levaquin, Symbicort, home oxygen. We also continue torsemide 10 mg daily. - Time Spent with Patient Total time spent providing and/or coordinating discharge services: Exam Vital signs: Vital Signs 01/26/18 17:00 01/26/18 18:00 01/26/18 19:00 Temperature 97.8 F Pulse Rate 94 H 96 H 84 Respiratory Rate 20 Blood Pressure 120/70 Pulse Oximetry 01/26/18 20:00 01/26/18 20:25 01/26/18 21:00 Temperature Pulse Rate 85 96 H 76 Respiratory Rate 17 18 Blood Pressure Pulse Oximetry 95 01/26/18 22:00 01/26/18 23:00 01/27/18 00:00 Temperature 97.8 F Pulse Rate 79 65 74 Respiratory Rate 20 Blood Pressure 117/75 Pulse Oximetry 95 01/27/18 01:00 01/27/18 02:00 01/27/18 03:00 Temperature Pulse Rate 64 65 70 Respiratory Rate 20 Blood Pressure 124/79 Pulse Oximetry 94 L 01/27/18 04:00 01/27/18 05:00 01/27/18 06:00 Temperature Pulse Rate 58 L 67 69 Respiratory Rate Blood Pressure Pulse Oximetry 01/27/18 06:05 01/27/18 07:00 01/27/18 07:46 Temperature 98.2 F Pulse Rate 59 L 70 77 Respiratory Rate 20 19 Blood Pressure 107/66 Pulse Oximetry 98 95 07/04/18 08:00 01/27/18 09:00 01/27/18 10:00 Temperature Pulse Rate 72 90 79 Respiratory Rate Blood Pressure Pulse Oximetry 01/27/18 11:00 01/27/18 11:22 01/27/18 12:00 Temperature 98.1 F Pulse Rate 76 94 H 85 Respiratory Rate 19 20 Blood Pressure 110/69 Pulse Oximetry 96 01/27/18 13:00 01/27/18 14:00 01/27/18 15:00 Temperature Pulse Rate 82 94 H 81 Respiratory Rate Blood Pressure Pulse Oximetry Intake & Output 01/26/18 01/27/18 01/27/18 18:59 06:59 18:59 Intake Total 1200 / 1200 1334 / 1334 Output Total 600 / 600 1000 / 1000 Balance 600 / 600 334 / 334 Weight 85 kg Intake: Oral 1200 / 1200 1200 / 1200 Other 134 / 134 Output: Urine 600 / 600 1000 / 1000 Other: # Voids 3 Date of Last Bowel Movement 01/26/18 01/27/18 # Bowel Movements 3 Narrative: GENERAL: Alert, oriented 3, NAD. SKIN: Warm and dry. HEAD: Normocephalic. EYES: No scleral icterus. No injection or drainage. NECK: Supple, trachea midline. No JVD or lymphadenopathy. CARDIOVASCULAR: Regular rate and rhythm without murmurs, gallops, or rubs. RESPIRATORY: Moderate air entry. Diffuse crackles. GASTROINTESTINAL: Abdomen soft, non-tender, nondistended. MUSCULOSKELETAL: No cyanosis, or edema. BACK: Nontender without obvious deformity. No CVA tenderness. Results Procedures completed during hospitalization: none Labs on day of discharge: Labs from last 24 hours 01/27/18 01/24/18 08:51 11:44 PT 24.0 H INR 2.4 Troponin I Less than 0.02 L Discharge Plan - Discharge Disposition Patient Disposition: /Home Health Service - Discharge Condition Condition: Good - Discharge Order Discharge Orders: Discharge Order (Routine); Ordered 01/27/18 Ordered By: Consuelo Gutierrez - Discharge Details Anticipated Discharge Date: 01/27/18 - Physicians Team Primary Care Provider: Althea Lam Attending Provider: Consuelo Gutierrez Other Providers: Roverto Dale MD ; [employer] ; [facility] - Rxs /Orders / Referrals /Forms Prescriptions: New albuterol sulfate [Ventolin HFA] 90 mcg/actuation Hfa Aerosol Inhaler 2 puff INH Q6H PRN (Reason: Shortness Of Breath) 30 Days RF: 11 budesonide-formoterol [Symbicort] 160-4.5 mcg/actuation Hfa Aerosol Inhaler 2 puff INH BID 30 Days RF: 11 gabapentin 100 mg Capsule 100 mg PO TID Qty: 90 RF: 2 ipratropium bromide 0.02 % Solution 0.5 mg INHALATION Q4H PRN (Reason: Dyspnea) 30 Days RF: 0 levofloxacin [Levaquin] 250 mg Tablet 750 mg PO DAILY Qty: 7 RF: 0 torsemide 10 mg Tablet 10 mg PO DAILY Qty: 30 RF: 3 Continue atenolol 50 mg Tablet 50 mg PO HS warfarin 5 mg Tablet 5 mg PO DAILY Discontinued albuterol sulfate 2.5 mg /3 mL (0.083 %) Solution For Nebulization 2.5 mg INHALATION Q4HR WHILE AWAKE NEB fluticasone furoate 200 mcg/actuation Blister With Device 1 inh INHALATION DAILY Ambulatory Orders / Order Sets / DME: Nebulizer Adult Kit (1 kit) (Routine) Timeframe: 1 Year Location: Determined by Patient Ordered By: Consuelo Gutierrez Oxygen Tank (2 liter) (Routine) Location: Determined by Patient Ordered By: Grzegorz Wang Walker With Front Wheels (1 each) (Routine) Location: Determined by Patient Ordered By: Grzegorz Wang Referrals: [facility] [employer] [Outside] - See Instructions ( Please call the physician's office to book the appointment to be seen within [1week].) Roverto Dale MD [Physician] - See Instructions Althea Lam MD [Primary Care Provider] - See Instructions ( Please call the physician's office to book the appointment to be seen within [1week].) - Post Discharge Care Plan Care Plan Goals: Discharge Care Plan Goals for Congestive Heart Failure Directions to Meet your Goals: 1. Diet: Limit your salt by doing the following: * Limit canned, dried, packaged, and fast foods. * Don't add salt to your food. * Season foods with herbs instead of salt. * Watch how much liquids you drink. Drinking too much can make heart failure worse. Talk with your health care provider about how much you should drink each day. * Limit the amount of alcohol you drink. It may harm your heart. Women should have no more than 1 drink a day and men should have no more than 2. * When you eat out, request that your meals have no added salt. 2. Activity: * You can benefit from simple activities such as walking or gardening. * Exercising most days of the week can make you feel better. * Don't be discouraged if your progress is slow at first. * Rest as needed. * Stop activity if you develop symptoms such as chest pain, lightheadedness, or significant shortness of breath. * Find activities that you enjoy, such as brisk walking, dancing, swimming, or gardening. These will help you stay active and strengthen your heart. 3. Medicine: * Take your medicines exactly as prescribed. * Learn the names and purpose of each of your medicines. * Keep an accurate medicine list and current dosages with you at all times. Don' t skip doses. * If you miss a dose of your medicine, take it as soon as you remember. * If you miss a dose and it's almost time for your next dose, just wait and take your next dose at the normal time. Don't take a double dose. * If you are unsure, call your doctor's office. Make sure not to mix up your medicines or forget what you've taken the same day. 4. Weight Monitoring: * Weigh yourself every day. A sudden weight gain can mean your heart failure is getting worse. * Weigh yourself at the same time of day and in the same kind of clothes. * Ideally, weigh yourself first thing in the morning after you empty your bladder, but before you eat breakfast. * If your weight goes up by more than 2 pounds in 1 day, 5 pounds in 1 week, or whatever weight gain you were told by your doctor, this is a sign that you are retaining more fluid than you should be. * Clues to weight gain include checking your ankles for swelling, or noticing you are short of breath when you lie down. 5. When to call your doctor: Call your doctor right away if you have any of these signs of worsening heart failure: Sudden weight gain (more than 2 pounds in 1 day or 5 pounds in 1 week, or whatever weight gain you were told to report by your doctor) Trouble breathing not related to being active New or increased swelling of your legs or ankles Swelling or pain in your abdomen Breathing trouble at night (waking up short of breath, needing more pillows to breathe) Frequent coughing that doesn't go away Feeling much more tired than usual 6. Follow up: Do Not miss your follow-up appointment. Keep up with all your appointments and yearly check ups Call 911 right away if you have: Severe shortness of breath, such that you can't catch your breath even while resting Severe chest pain that does not resolve with rest or nitroglycerin [place], foamy mucus with cough and shortness of breath A continuous rapid or irregular heartbeat Passing out or fainting Stroke symptoms such as sudden numbness or weakness on one side of your face , arm, or leg or sudden confusion, trouble speaking or vision changes Your Health Problems: Goals to Promote Your Health: * To prevent worsening of your condition * To maintain your health at the optimal level Directions to Meet Your Goals: * Take your medications as prescribed * Follow your dietary instruction * Follow activity as directed * Keep your appointments as scheduled * Take your immunizations and boosters as scheduled * If your symptoms worsen call your PCP * If no PCP go to Urgent Care or Emergency Room Smoking is dangerous to your health. Avoid second hand smoke. You may reach the 24-hour crisis hotline for domestic abuse at .
== END 2018-01-27 15:56 | disposition home health service (06) ==
LOC: HCIS 00:19
PROVIDERS: ADMIT Hospitalist; ATTEND Hospitalist

== ENCOUNTER 2018-05-01 09:52 | Inpatient (IN) ==
[2018-05-01] MEDS ORDERED: MethylPREDNISolone Sod Succinate Inj 125 MG/2 ML Vial IV.PUSH ONE (10:07)
[2018-05-01 10:36] LABS: Baso % (Auto) 0.3 % (0.0-2.0); Eos # (Auto) 0.1 th/mm3 (0.0-0.4); Eos % (Auto) 1.8 % (0.0-4.0); Hematocrit 40.8 % (39.0-51.0); Hemoglobin 14.3 gm/dL (13.0-17.0); Lymph # (Auto) 1.1 th/mm3 (1.0-4.8); Lymph % (Auto) 18.2 % (9.0-44.0); Mean Corpuscular HGB Conc 35.2 % (32.0-36.0); Mean Corpuscular Hemoglobin 34.1 pg (27.0-34.0); Mean Platelet Volume 7.7 fL (7.0-11.0); Mono # (Auto) 0.4 th/mm3 (0.0-0.9); Mono % (Auto) 6.4 % (0.0-8.0); Neut # (Auto) 4.5 th/mm3 (1.8-7.7); Neut % (Auto) 73.3 % (16.0-70.0); Platelet Count 199 th/mm3 (150-450); White Blood Count 6.2 th/mm3 (4.0-11.0)
--- NOTE | 2018-05-01 10:40 | XR ---
EXAM DATE: 05/01/2018 10:07 AM EDT AGE/SEX: 77 years / Male INDICATIONS: Shortness of breath. CLINICAL DATA: This is the patient's initial encounter. Patient reports that signs and symptoms have been present for 4 - 6 days and indicates a pain score of 0/10. MEDICAL/SURGICAL HISTORY: None. None. COMPARISON: Prior chest x-ray from 01/22/2018. FINDINGS: The heart size is mildly enlarged. Lungs are essentially diffuse mild increased interstitial markings . A significant effusion is not closed seen. CONCLUSION: Cardiomegaly with mild increased interstitial markings likely related to edema and CHF versus chronic increased interstitial markings and underlying interstitial disease. Interstitial markings appear un changed when compared to prior exams. Electronically signed by: Roverto Ritchie MD 05/01/2018 10:38 AM EDT
[2018-05-01 10:41] LABS: INR 2.7 Ratio; Prothrombin Time 27.2 sec (9.8-11.6)
[2018-05-01 10:49] LABS: Anion Gap 6 meq/L (5-15); Aspartate Aminotransferase 15 U/L (15-37); Blood Urea Nitrogen 10 mg/dL (7-18); Calcium 8.6 mg/dL (8.5-10.1); Carbon Dioxide 34.5 meq/L (21.0-32.0); Chloride 100 meq/L (98-107); Glomerular Filtration Rate Greater Than 89 mL/min (>89); Glucose,Random 108 mg/dL (74-106); Potassium 4.3 meq/L (3.5-5.1); Sodium 140 meq/L (136-145)
[2018-05-01 10:53] LABS: Alanine Aminotransferase 14 U/L (12-78); Alkaline Phosphatase 88 U/L (45-117); Total Protein 7.2 g/dL (6.4-8.2)
[2018-05-01 11:00] LABS: Creatine Kinase 39 U/L (39-308)
--- NOTE | 2018-05-01 11:29 | ED ---
HPI General Chief Complaint: Respiratory Symptoms Stated Complaint: respiratory Time Seen by Provider: 05/01/18 10:07 Source: patient Mode of arrival: ambulatory Limitations: no limitations History of Present Illness 77-year-old male patient arrives by private vehicle from home due to shortness of breath. He has history of lung disease and uses nebulizers at home 4 times daily and has been using them as directed for the past week and reports shortness of breath at rest and dyspnea on exertion. Patient finished a course of prednisone in the past couple of days according to the . Orthopnea is reported. Cough with clear sputum is reported. No chest pain. no fever. Patient reports a history of CHF. He has been compliant with dietary guidelines MD Complaint: Reports shortness of breath and cough Onset (ago): week(s) (2) Related Data Home Medications Medication Instructions Recorded Confirmed atenolol 50 mg PO HS 01/23/18 05/01/18 warfarin 5 mg PO DAILY 01/23/18 05/01/18 fluticasone-vilanterol [Breo 1 inh INHALATION DAILY 05/01/18 05/01/18 Ellipta] levothyroxine 25 mcg PO DAILY 05/01/18 05/01/18 Previous Rx's Medication Instructions Recorded albuterol sulfate [Ventolin HFA] 2 puff INH Q6H PRN 30 Days g 01/27/18 torsemide 10 mg PO DAILY #30 tab 01/27/18 Allergies Allergy/AdvReac Type Severity Reaction Status Date / Time No Known Allergies Allergy Uncoded 08/12/16 12:25 Review of Systems ROS: all other systems reviewed are negative PMFSH Social History Social History Substance History: No History of Abuse Smoking Status: Former smoker How Often Do You Have a Drink Containing Alcohol: 2 to 3 times a week Recent Travel in [facility] within the Last 8 Weeks: No Recent Out of Country Travel within the Last 8 Weeks: No Immunization History Tetanus Immunization: Unsure Exam Narrative Exam Narrative: GENERAL: 77-year-old male well-nourished well-developed, moderate respiratory distress SKIN: Focused skin assessment warm/dry. HEAD: Atraumatic. Normocephalic. EYES: Pupils equal and round. No scleral icterus. No injection or drainage. ENT: No nasal bleeding or discharge. Mucous membranes pink and moist. NECK: Trachea midline. No JVD. CARDIOVASCULAR: Rate approximately 60. Regular rhythm. RESPIRATORY: Tachypnea to a rate of approximately 30 breaths a minute. Wheezing is present bilaterally. GASTROINTESTINAL: Abdomen soft, non-tender, nondistended. Hepatic and splenic margins not palpable. MUSCULOSKELETAL: No obvious deformities. No clubbing. No cyanosis. 1+ pitting edema present bilaterally. No asymmetry NEUROLOGICAL: Awake and alert. No obvious cranial nerve deficits. Motor grossly within normal limits. Normal speech. PSYCHIATRIC: Appropriate mood and affect; insight and judgment normal. Course Initial Documented Vital Signs Temperature 98.2 F 05/01/18 09:55 Pulse Rate 98 H 05/01/18 09:55 Respiratory Rate 30 H 05/01/18 09:55 Blood Pressure 142/83 H 05/01/18 09:55 Pulse Oximetry 68 L 05/01/18 09:55 Last Documented Vital Signs Temperature 98.2 F 05/01/18 09:55 Pulse Rate 90 05/01/18 14:00 Respiratory Rate 31 H 05/01/18 14:00 Blood Pressure 127/94 H 05/01/18 14:00 Pulse Oximetry 98 05/01/18 14:00 Critical Care Time Critical Care Time: Yes Total Critical Care Time: 35 Attestation: Aggregate critical care time was 35 minutes. Time to perform other separately billable procedures was not included in the critical care time. My time did not include minutes spent treating any other patients simultaneously or on activities that did not directly contribute to the patient's treatment. The services I provided to this patient were to treat and/or prevent clinically significant deterioration that could result in: Cardiopulmonary arrest, hypoxia I provided critical care services requiring my management, as noted below: Chart data review, documentation time, medication orders and management, vital sign assessments/reviewing monitor data, ordering and reviewing lab tests, ordering and interpreting/reviewing x-rays and diagnostic studies, care of the patient and discussion of the patient with the admitting physicians. Medical Decision Making MDM Narrative Medical decision making narrative: Workup reveals nonspecific elevation in BNP at 179 with an equivocal chest x-ray potentially the same as priors. Patient received 3 rounds of nebulized breathing treatments here and reported subjective improvement while resting. He ambulated to the bathroom here in the ED with his home oxygen on and upon return to his room the O2 sat was 78%. The heart rate increased to 98 up from 70. Patient will be admitted for obstructive airway disease acute exacerbation with or without CHF exacerbation and/or pulmonary infection. Kathi added. Rocephin/Azithro added w blood cultures. d/w Dr Pretty for [facility]. Medical Screen Exam Complete: Yes Emergency Medical Condition: Yes Differential Diagnosis Differential Diagnosis: COPD, obstructive lung disease not otherwise specified, CHF exacerbation, anemia, pneumonia, pneumothorax, coronary disease Medical Records Medical records reviewed: Yes I reviewed the patient's medical records. Lab Data Lab results reviewed: Yes I reviewed the patient's lab results. Result diagrams: 05/01/18 10:15 05/01/18 10:15 Lab Results 05/01/18 05/01/18 05/01/18 Range/Units 10:15 10:15 10:15 WBC 6.2 (4.0-11.0) th/mm3 RBC 4.20 L (4.50-5.90) mil/mm3 Hgb 14.3 (13.0-17.0) gm/dL Hct 40.8 (39.0-51.0) % MCV 97.0 (80.0-100.0) fL MCH 34.1 H (27.0-34.0) pg MCHC 35.2 (32.0-36.0) % RDW 14.0 (11.6-17.2) % Plt Count 199 (150-450) th/mm3 MPV 7.7 (7.0-11.0) fL Neut % (Auto) 73.3 H (16.0-70.0) % Lymph % (Auto) 18.2 (9.0-44.0) % Kaufman % (Auto) 6.4 (0.0-8.0) % Eos % (Auto) 1.8 (0.0-4.0) % Baso % (Auto) 0.3 (0.0-2.0) % Neut # (Auto) 4.5 (1.8-7.7) th/mm3 Lymph # (Auto) 1.1 (1.0-4.8) th/mm3 Kaufman # (Auto) 0.4 (0.0-0.9) th/mm3 Eos # (Auto) 0.1 (0.0-0.4) th/mm3 Baso # (Auto) 0.0 (0.0-0.2) th/mm3 WBC Differential . Differential Comment Auto diff final PT 27.2 H (9.8-11.6) sec INR 2.7 Ratio Puncture Site Patient Temperature O2 Saturation (90-100) % ABG pH (7.380-7.420) ABG pCO2 (38-42) mmHg ABG pO2 (61-120) mmHg ABG HCO3 (22-26) mmol/L ABG O2 Content (12.0-20.0) Vol % ABG Base Excess (-2-2) mmol/L ABG Methemoglobin (0-2) % Royce Test Hemoglobin (12.0-16.0) G/DL Carboxyhemoglobin (0-4) % O2 Delivery Device Liter Flow L/M Critical Value Sodium 140 (136-145) meq/L Potassium 4.3 (3.5-5.1) meq/L Chloride 100 (98-107) meq/L Carbon Dioxide 34.5 H (21.0-32.0) meq/L Anion Gap 6 (5-15) meq/L BUN 10 (7-18) mg/dL Creatinine 0.83 (0.60-1.30) mg/dL Estimated GFR Greater than 89 (>89) mL/min Random Glucose 108 H (74-106) mg/dL Calcium 8.6 (8.5-10.1) mg/dL Total Bilirubin 0.8 (0.2-1.0) mg/dL AST 15 (15-37) U/L ALT 14 (12-78) U/L Alkaline Phosphatase 88 (45-117) U/L Total Creatine Kinase 39 (39-308) U/L Troponin I Less than 0.02 L (0.02-0.05) ng/mL B-Natriuretic Peptide (0-100) pg/mL Total Protein 7.2 (6.4-8.2) g/dL Albumin 3.0 L (3.4-5.0) g/dL 05/01/18 05/01/18 Range/Units 10:15 12:55 WBC (4.0-11.0) th/mm3 RBC (4.50-5.90) mil/mm3 Hgb (13.0-17.0) gm/dL Hct (39.0-51.0) % MCV (80.0-100.0) fL MCH (27.0-34.0) pg MCHC (32.0-36.0) % RDW (11.6-17.2) % Plt Count (150-450) th/mm3 MPV (7.0-11.0) fL Neut % (Auto) (16.0-70.0) % Lymph % (Auto) (9.0-44.0) % Kaufman % (Auto) (0.0-8.0) % Eos % (Auto) (0.0-4.0) % Baso % (Auto) (0.0-2.0) % Neut # (Auto) (1.8-7.7) th/mm3 Lymph # (Auto) (1.0-4.8) th/mm3 Kaufman # (Auto) (0.0-0.9) th/mm3 Eos # (Auto) (0.0-0.4) th/mm3 Baso # (Auto) (0.0-0.2) th/mm3 WBC Differential Differential Comment PT (9.8-11.6) sec INR Ratio Puncture Site Right brachial Patient Temperature 98.6 O2 Saturation 97 (90-100) % ABG pH 7.39 (7.380-7.420) ABG pCO2 56 H* (38-42) mmHg ABG pO2 134 H (61-120) mmHg ABG HCO3 33 H (22-26) mmol/L ABG O2 Content 20.0 (12.0-20.0) Vol % ABG Base Excess 8.2 H (-2-2) mmol/L ABG Methemoglobin 0.5 (0-2) % Royce Test Y Hemoglobin 14.6 (12.0-16.0) G/DL Carboxyhemoglobin 1.4 (0-4) % O2 Delivery Device Nasal cannula Liter Flow 6.00 L/M Critical Value Yes Sodium (136-145) meq/L Potassium (3.5-5.1) meq/L Chloride (98-107) meq/L Carbon Dioxide (21.0-32.0) meq/L Anion Gap (5-15) meq/L BUN (7-18) mg/dL Creatinine (0.60-1.30) mg/dL Estimated GFR (>89) mL/min Random Glucose (74-106) mg/dL Calcium (8.5-10.1) mg/dL Total Bilirubin (0.2-1.0) mg/dL AST (15-37) U/L ALT (12-78) U/L Alkaline Phosphatase (45-117) U/L Total Creatine Kinase (39-308) U/L Troponin I (0.02-0.05) ng/mL B-Natriuretic Peptide 178 H (0-100) pg/mL Total Protein (6.4-8.2) g/dL Albumin (3.4-5.0) g/dL BNP 178 LFTs normal Imaging Data Attestation: I personally reviewed and interpreted this imaging study as follows : (Acute versus chronic interstitial changes noted, no focal consolidation) Radiologist's impression: Chest X-Ray 05/01/18 10:07 CONCLUSION: Cardiomegaly with mild increased interstitial markings likely related to edema and CHF versus chronic increased interstitial markings and underlying interstitial disease. Interstitial markings appear unchanged when compared to prior exams. ECG Data Attestation: I personally reviewed and interpreted this ECG as follows: (EKG shows atrial fibrillation, rate 76, no ischemic injury pattern) Discharge Plan Discharge Disposition Patient Disposition: 30 Still Patient Physicians Team ED Provider: Case Wade Primary Care Provider: Althea Lam Attending Provider: Jose Pretty Status ED Status: Admitted Patient
[2018-05-01] MEDS ORDERED: Azithromycin 250 MG Tablet PO ONE (12:08)
[2018-05-01] MEDS ORDERED: Bisacodyl 10 MG Supp RECTAL PRN (12:49)
[2018-05-01] MEDS ORDERED: MethylPREDNISolone Sod Succinate Inj 125 MG/2 ML Vial IV.PUSH SCH (13:00)
--- NOTE | 2018-05-01 13:03 | ECG ---
Date Performed: 05/01/2018 Time Performed: 10:10:02 PTAGE: 77 years EKG: ATRIAL FIBRILLATION ABNORMAL RHYTHM ECG INTERPRETATION BASED ON A DEFAULT AGE OF 39 YEARS NO PREVIOUS TRACING DOCTOR: Raysa Thomas Interpretating Date/Time 05/01/2018 13:02:00
[2018-05-01 13:13] LABS: ABG Base Excess 8.2 mmol/L (-2-2); ABG PCO2 56 mmHg (38-42); ABG PO2 134 mmHg (61-120)
[2018-05-01] MEDS: MethylPREDNISolone Sod Succinate Inj 125 MG/2 ML Vial IV.PUSH SCH ×2 (17:43→20:53)
[2018-05-01] MEDS ORDERED: Warfarin Consult Pharmacy OTHER PRN (18:58)
--- NOTE | 2018-05-01 19:11 | P.HPIM ---
History of Present Illness Primary Care Physician: Althea Lam MD History of Present Illness: 77-year-old male with a history of CHF, COPD, atrial fibrillation on warfarin who presents with a one-week history of progressively worsening shortness of breath both on exertion and at rest, with cough productive of clear sputum. Patient reports some chest tightness this morning which was relieved with nebulization in the ER. Denies any emerson chest pain. Denies any fevers, chills , nausea, vomiting, laziness, dizziness. Patient does report a 30 pound weight loss over the past 2 months. Inpatient Certification: I certify that the inpatient services were ordered in accordance with Medicare regulations governing the order. This includes certification that hospital inpatient services are reasonable and necessary and in the case of services not specified as inpatient-only under 42 CFR 419.22(n), that they are appropriately provided as inpatient services in accordance to with the 2-midnight benchmark under 43 CFR 412.3(e) Estimated Total Length of Stay (Days): 3 Plans for Post Hospital Care: Home Review of Systems All other systems reviewed negative except as stated in HPI PMFSH - History History Provided By: Patient - Medical History Medical History: Medical History (Last Updated 05/01/18 @ 19:09 by Jose Pretty MD) Atrial fibrillation CHF (congestive heart failure) COPD (chronic obstructive pulmonary disease) Colon cancer - Family History Family History: Family History (Last Updated 05/01/18 @ 19:09 by Jose Pretty MD) Father Injury Mother Hip fracture - Tobacco History Second Hand Smoke Exposure: Yes Smoking Status: Former smoker - Alcohol History How Often Do You Have a Drink Containing Alcohol: 2 to 3 times a week - Substance Use History Substance History: No History of Abuse - Travel History Recent Travel in the [place] Within the Last 8 Weeks: No Recent Travel Out of the Country Within the Last 8 Weeks: No - Immunization History Tetanus Immunization: Unsure Medications and Allergies Active Medications: Active Medications Al Hydroxide/Mg Hydroxide (Milk Of Magnesia Liq) 30 ml PO Q12H PRN PRN Reason: Mild Constipation Albuterol (Duoneb Neb (Prn)) 1 ampul NEB Q15M PRN PRN Reason: WHEEZING Last Admin: 05/01/18 10:23 Dose: 3 ampul Albuterol (Duoneb Neb (Juan Antonio)) 1 ampul NEB Q4HR NEB JUAN ANTONIO Last Admin: 05/01/18 17:43 Dose: 1 ampul Atenolol (Tenormin) 50 mg PO HS [facility] Azithromycin (Zithromax) 500 mg PO DAILY [facility] Bisacodyl (Dulcolax Supp) 10 mg RECTAL DAILY PRN PRN Reason: SEVERE CONSITIPATION Fluticasone/Vilanterol (Breo Ellipta 100/25 Mcg Inh) 1 puff INH DAILY [facility] Ipratropium Bristow (Atrovent Neb) 0.5 mg NEB Q6HR NEB PRN PRN Reason: SHORTNESS OF BREATH Lactulose (Lactulose Liq) 30 ml PO DAILY PRN PRN Reason: SEVERE CONSITIPATION Levothyroxine Sodium (Synthroid) 25 mcg PO DAILY@0600 [facility] Methylprednisolone Sodium Succinate (Solumedrol Inj) 60 mg IV.PUSH Q6H [facility] Last Admin: 05/01/18 17:43 Dose: 60 mg Pharmacy Profile Note (Coumadin Consult Pharmacy) 1 each OTHER UNSCH PRN PRN Reason: PHARMACY DOCUMENTATION Sennosides (Senokot) 17.2 mg PO Q12H PRN PRN Reason: Moderate Constipation Sodium Chloride (Ns Flush) 2 ml IV.FLUSH BID [facility] Sodium Chloride (Ns Flush) 2 ml IV.FLUSH PRN PRN PRN Reason: FLUSH AFTER USING IV ACCESS Torsemide (Demadex) 10 mg PO DAILY [facility] Warfarin Sodium (Coumadin) 5 mg PO DAILY@1600 [facility] Allergies Allergy/AdvReac Type Severity Reaction Status Date / Time No Known Allergies Allergy Uncoded 08/12/16 12:25 Home Medications Medication Instructions Recorded Confirmed Type atenolol 50 mg PO HS 01/23/18 05/01/18 History warfarin 5 mg PO DAILY 01/23/18 05/01/18 History fluticasone-vilanterol [Breo 1 inh INHALATION DAILY 05/01/18 05/01/18 History Ellipta] levothyroxine 25 mcg PO DAILY 05/01/18 05/01/18 History Exam Vital signs: Vital Signs 05/01/18 09:55 05/01/18 10:04 05/01/18 10:08 Temperature 98.2 F Pulse Rate 98 H 82 Respiratory Rate 30 H Blood Pressure 142/83 H 136/77 Pulse Oximetry 68 L 96 98 05/01/18 10:19 05/01/18 11:00 05/01/18 12:00 Temperature Pulse Rate 61 76 84 Respiratory Rate 15 34 H 30 H Blood Pressure 136/77 133/77 Pulse Oximetry 95 99 05/01/18 13:00 05/01/18 14:00 05/01/18 16:00 Temperature 97.2 F L Pulse Rate 74 90 93 H Respiratory Rate 32 H 31 H 17 Blood Pressure 134/84 127/94 H 121/73 Pulse Oximetry 99 98 97 05/01/18 17:44 Temperature Pulse Rate 79 Respiratory Rate 20 Blood Pressure Pulse Oximetry Intake & Output 05/01/18 05/01/18 05/02/18 06:59 18:59 06:59 Intake Total 900 / 900 Output Total 850 / 850 Balance 50 / 50 Weight 90.718 kg Intake: IV 100 / 100 Rocephin Inj 1,000 MG In NS Inj 100 / 100 100 ML @ 200 mls/hr IV.SIG ONCE ONE Rx#:[id number] Oral 800 / 800 Output: Urine 850 / 850 Other: # Voids 3 Narrative: GENERAL: patient sitting up in bed about to eat dinner. Appears comfortable. SKIN: Warm and dry. HEAD: Atraumatic. Normocephalic. EYES: Pupils equal and round. No scleral icterus. No injection or drainage. ENT: No nasal bleeding or discharge. Mucous membranes pink and moist. NECK: Trachea midline. No JVD. CARDIOVASCULAR: Regular rate and rhythm. RESPIRATORY: No accessory muscle use. some wheezing bilaterally. Breath sounds equal bilaterally. GASTROINTESTINAL: Abdomen soft, non-tender, nondistended. Hepatic and splenic margins not palpable. MUSCULOSKELETAL: Extremities without clubbing, cyanosis, . Trace edema. No obvious deformities. NEUROLOGICAL: Awake and alert. No obvious cranial nerve deficits. Motor grossly within normal limits. Five out of 5 muscle strength in the arms and legs. Normal speech. PSYCHIATRIC: Appropriate mood and affect; insight and judgment normal. Results - Labs CBC & Chem 7: 05/01/18 10:15 05/01/18 10:15 Labs: Short CBC 05/01/18 Range/Units 10:15 WBC 6.2 (4.0-11.0) th/mm3 Hgb 14.3 (13.0-17.0) gm/dL Hct 40.8 (39.0-51.0) % Plt Count 199 (150-450) th/mm3 BMP 05/01/18 10:15 Sodium 140 Potassium 4.3 Chloride 100 Carbon Dioxide 34.5 H BUN 10 Creatinine 0.83 Calcium 8.6 Cardiac Enzymes 05/01/18 Range/Units 10:15 Total Creatine Kinase 39 (39-308) U/L Troponin I Less than 0.02 L (0.02-0.05) ng/mL Liver Function 05/01/18 Range/Units 10:15 Total Bilirubin 0.8 (0.2-1.0) mg/dL AST 15 (15-37) U/L ALT 14 (12-78) U/L Alkaline Phosphatase 88 (45-117) U/L Albumin 3.0 L (3.4-5.0) g/dL - Imaging Impressions Chest X-Ray 05/01/18 10:07 CONCLUSION: Cardiomegaly with mild increased interstitial markings likely related to edema and CHF versus chronic increased interstitial markings and underlying interstitial disease. Interstitial markings appear unchanged when compared to prior exams. Caprini VTE Risk Assessment Caprini VTE Risk Assessment: Moderate/High Risk (score >= 2) Caprini Risk Assessment Model: Point Value = 1 Point Value = 2 Point Value = 3 Point Value = 5 Age 41-60 Minor surgery BMI > 25 kg/m2 Swollen legs Varicose veins or History of unexplained or recurrent spontaneous Oral contraceptives or hormone replacement Sepsis (< 1 month) Serious lung disease, including pneumonia (< 1 month) Abnormal pulmonary function Acute myocardial infarction Congestive heart failure (< 1 month) History of inflammatory bowel disease Medical patient at bed rest Age 61-74 Arthroscopic surgery Major open surgery (> 45 min) Laparoscopic surgery (> 45 min) Malignancy Confined to bed (> 72 hours) Immobilizing plaster cast Central venous access Age >= 75 History of VTE Family history of VTE Factor V Leiden Prothrombin [id number] Lupus anticoagulant Anticardiolipin antibodies Elevated serum homocysteine Heparin-induced thrombocytopenia Other congenital or acquired thrombophilia Stroke (< 1 month) Elective arthroplasty Hip, pelvis, or leg fracture Acute spinal cord injury (< 1 month) Prophylaxis Regimen: Total Risk Factor Score Risk Level Prophylaxis Regimen 0-1 Low Early ambulation 2 Moderate Order ONE of the following: *Sequential Compression Device (SCD) *Heparin 5000 units SQ BID 3-4 Higher Order ONE of the following medications: *Heparin 5000 units SQ TID *Enoxaparin/Lovenox 40 mg SQ daily (WT < 150 kg, CrCl > 30 mL/min) *Enoxaparin/Lovenox 30 mg SQ daily (WT < 150 kg, CrCl > 10-29 mL/min) *Enoxaparin/Lovenox 30 mg SQ BID (WT < 150 kg, CrCl > 30 mL/min) AND/OR *Sequential Compression Device (SCD) 5 or more Highest Order ONE of the following medications: *Heparin 5000 units SQ TID (Preferred with Epidurals) *Enoxaparin/Lovenox 40 mg SQ daily (WT < 150 kg, CrCl > 30 mL/min) *Enoxaparin/Lovenox 30 mg SQ daily (WT < 150 kg, CrCl > 10-29 mL/min) *Enoxaparin/Lovenox 30 mg SQ BID (WT < 150 kg, CrCl > 30 mL/min) AND *Sequential Compression Device (SCD) Assessment and Plan - Plan //Acute on chronic COPD exacerbation. //Hypercapnic respiratory failure -AbG with pCO2 of 56 = Chest x-ray with interstitial markings unchanged from previously. No acute findings on EKG. BNP 178 not significantly elevated. = Improved with DuoNeb's and IV steroids Continue on azithromycin, DuoNeb nebs, IV steroids. Patient follows with Dr. Fry. We'll consult Dr. Leon //History of colon cancer s/p treatment //30 pound weight loss over the past 2 months. -From history it sounds as if this could be from water weight as patient reports edema improving. Patient will need a follow-up closely with primary care. //Chronic diastolic CHF. Recent echocardiogram on 01/23/18 with normal ejection fraction, however marcated increase in estimated pulmonary pressures suspected to be secondary to COPD. Continue home medications. BnP in the 170s not significantly elevated. //Atrial fibrillation. EKG on admission with atrial fibrillation. INR therapeutic. Warfarin continued. Pharmacy following. //DVT prophylaxis. On Coumadin. Discussed Condition With: patient, nurse, ED physician
[2018-05-01] MEDS: Atenolol 50 MG Tablet PO SCH (20:52)
[2018-05-02] MEDS: MethylPREDNISolone Sod Succinate Inj 125 MG/2 ML Vial IV.PUSH SCH ×5 (01:37→21:04)
[2018-05-02 01:57] LABS: ABG Base Excess 6.4 mmol/L (-2-2); ABG PCO2 53 mmHg (38-42); ABG PO2 108 mmHg (61-120)
[2018-05-02 04:37] LABS: Baso % (Auto) 0.2 % (0.0-2.0); Hematocrit 40.5 % (39.0-51.0); Hemoglobin 13.8 gm/dL (13.0-17.0); Lymph # (Auto) 0.7 th/mm3 (1.0-4.8); Lymph % (Auto) 9.9 % (9.0-44.0); Mean Corpuscular HGB Conc 34.1 % (32.0-36.0); Mean Corpuscular Hemoglobin 32.9 pg (27.0-34.0); Mean Corpuscular Volume 96.5 fL (80.0-100.0); Mean Platelet Volume 7.9 fL (7.0-11.0); Mono # (Auto) 0.1 th/mm3 (0.0-0.9); Neut # (Auto) 6.2 th/mm3 (1.8-7.7); Neut % (Auto) 88.9 % (16.0-70.0); Platelet Count 204 th/mm3 (150-450); Red Cell Distribution Width 13.9 % (11.6-17.2)
[2018-05-02 05:02] LABS: Albumin 2.8 g/dL (3.4-5.0); Anion Gap 6 meq/L (5-15); Aspartate Aminotransferase 13 U/L (15-37); Blood Urea Nitrogen 16 mg/dL (7-18); Calcium 8.6 mg/dL (8.5-10.1); Carbon Dioxide 32.8 meq/L (21.0-32.0); Chloride 99 meq/L (98-107); Glomerular Filtration Rate Greater Than 89 mL/min (>89); Glucose,Random 142 mg/dL (74-106); Potassium 4.3 meq/L (3.5-5.1); Sodium 138 meq/L (136-145)
[2018-05-02 05:03] LABS: Alanine Aminotransferase 14 U/L (12-78)
[2018-05-02 05:05] LABS: Alkaline Phosphatase 84 U/L (45-117); Total Protein 7.5 g/dL (6.4-8.2)
[2018-05-02] MEDS: Azithromycin 250 MG Tablet PO SCH (08:29)
--- NOTE | 2018-05-02 15:40 | MB ---
cc: Nohemi Morrison MD, V J MD DATE: 05/02/2018 HISTORY OF PRESENT ILLNESS: This is a 77-year-old white male with a history of COPD, CHF, chronic atrial fibrillation, who presents with a 1-2 week history of increasing shortness of breath with minimal cough, no purulent sputum, no chest pain. He does have a history of heart disease, and is followed by someone in Dr. Alonso's group, he does not remember the name, but has had no chest pain, presyncopal symptoms, but he has had palpitations. He takes atenolol at home for this and is also on warfarin. INR was therapeutic on presentation at 2.7. He continues to be short of breath today, even at rest. He tried to go to the bathroom and became quite short of breath and a little lightheaded. He has been afebrile. Heart rate has ranged from 80-116. O2 saturations mid 90s on 4 liters. He is also concerned about a 30 pound weight loss over the last few months with an excellent appetite, not trying to diet at all. He does have a history of colon cancer 2 years ago. To date, there has been no evidence of recurrence. MEDICATIONS: He uses Breo at home with occasional albuterol, also on a diuretic. ALLERGIES: NONE. PAST MEDICAL HISTORY: Other than that noted above. No prior history of significant pneumonia. No history of thromboembolic disease. SOCIAL HISTORY: Prior smoker, although he quit smoking about 20-30 years ago, smoked a pack per day for about 20 years. Rarely uses alcohol. FAMILY HISTORY: Negative for pulmonary disease. REVIEW OF SYSTEMS: Other than that noted above. No nausea, vomiting, abdominal pain, reflux symptoms, occasional diarrhea, no constipation. Occasional edema, none of significance recently. PHYSICAL EXAMINATION: GENERAL: He is awake, alert, appears dyspneic at rest, afebrile. VITAL SIGNS: Blood pressure is 90/60, pulse is 100, respirations are 24, O2 saturation currently 91%. Sclerae are anicteric. NECK: Veins are distended. CHEST: Basilar rales at least 1/3-1/[address] up both sides. HEART: Irregular rhythm. No harsh murmur. No audible S3. ABDOMEN: Soft. EXTREMITIES: One plus pretibial edema. No calf tenderness or cyanosis. DISCUSSION: Mr. Segura presents with a known history of chronic obstructive pulmonary disease, congestive heart failure, and atrial fibrillation. Currently, heart rates seem adequately controlled, but his dyspnea is a little alarming even at rest. Although he is on Coumadin and therapeutically anticoagulated, I am going to proceed with a CTA to rule out thromboembolic disease as well as to look to see whether or not these rales represent edema or pulmonary fibrosis. We will continue him on oxygen, nebulized aerosol treatments and methylprednisolone. Further diagnostic and/or therapeutic intervention will depend on his ongoing clinical course. R. MD ANALISA Spann/damián , 03:08 PM , 03:14 PM
[2018-05-02] MEDS ORDERED: Gadodiamide PF Inj 287 MG/ML 10 ML Syringe (for RAD MRI) IVCONTRAST ONE (15:52)
--- NOTE | 2018-05-02 16:39 | CT ---
EXAM DATE: 05/02/2018 3:14 PM EDT AGE/SEX: 77 years / Male INDICATIONS: Embolism, Short of breath CLINICAL DATA: This is the patient's initial encounter. Patient reports that signs and symptoms have been present for 1 day and indicates a pain score of 7/10. MEDICAL/SURGICAL HISTORY: Carcinoma, colon. Chronic obstructive pulmonary disease. Congestive hea rt failure. None. RADIATION DOSE: 28.60 CTDI (mGy) COMPARISON: [facility] [place], CT THORAX W/O CONTRAST, 03/25/2016. . TECHNIQUE: Volumetric scanning was performed using a multi-row detector CT scanner during bolus infu adeline of 75ML ml Omnipaque 350 (iohexol) nonionic water-soluble contrast as a single exam dose. The d raza was post processed with a variety of visualization algorithms including full volume maximum inten sity projection and sliding thin slab reformation. Using automated exposure control and adjustment of the mA and/or kV according to patient size, radiation dose was kept as low as reasonably achievable to obtain optimal diagnostic quality images. DICOM format image data is available electronically for review and comparison. FINDINGS: Pulmonary Arteries: No filling defects are seen in the pulmonary arteries out to the subsegmental ve ssels. The left and right pulmonary arteries are normal in diameter. Lung: Pulmonary fibrosis involving the mid and lower lungs is similar to prior CT in February 2016. Th ere is new involvement of the right upper lobe, similar in severity to the remainder of the lungs. Effusion: None. Mediastinum: No evidence of mediastinal or hilar adenopathy. Other: The axilla is unremarkable. CONCLUSION: 1. This study is negative for pulmonary embolism. 2. Moderately severe pulmonary fibrosis which is progressed in severity when compared to prior CT th orax February 2016. Electronically signed by: Enzo Arce MD 05/02/2018 4:38 PM EDT
[2018-05-02] MEDS: Atenolol 50 MG Tablet PO SCH (21:04)
--- NOTE | 2018-05-02 21:11 | P.PNIM ---
Subjective Interval history: Pt complains of some shortness of breath, slightly improved from yesterday. Physical Exam Vital signs: Vital Signs 05/02/18 00:00 05/02/18 01:32 05/02/18 08:00 Temperature 97.3 F L 97.4 F L Pulse Rate 91 H 54 L 65 Respiratory Rate 18 18 17 Blood Pressure 120/79 120/71 Pulse Oximetry 93 L 98 96 05/02/18 09:22 05/02/18 12:00 05/02/18 12:11 Temperature 97.5 F L Pulse Rate 82 116 H 93 H Respiratory Rate 18 24 18 Blood Pressure 93/61 L Pulse Oximetry 96 91 L 05/02/18 15:00 05/02/18 16:00 05/02/18 16:20 Temperature 97.5 F L Pulse Rate 93 H Respiratory Rate 26 H 24 16 Blood Pressure 124/65 Pulse Oximetry 91 L 05/02/18 17:29 05/02/18 21:08 Temperature 97.3 F L Pulse Rate 74 99 H Respiratory Rate 20 18 Blood Pressure 127/73 Pulse Oximetry 94 L Intake & Output 05/02/18 05/02/18 05/03/18 06:59 18:59 06:59 Intake Total 1100 / 1100 Output Total 200 / 200 Balance -200 / -200 1100 / 1100 Weight 91.5 kg Intake: Oral 1100 / 1100 Output: Urine 200 / 200 Other: # Voids 5 # Bowel Movements 0 Narrative: Patient sitting upright in bed. Complaining of some sob, improved from yesterday. EOMI, Clear O/P mucosa S1, S2 B/L coarseness abd soft, NT, non distended, normal bowel sounds no neuro deficits. Results - Labs CBC & Chem 7: 05/02/18 04:03 05/02/18 04:03 Laboratory Results - last 24 hr 05/01/18 05/02/18 05/02/18 01:44 04:03 04:03 WBC 7.0 RBC 4.20 L Hgb 13.8 Hct 40.5 MCV 96.5 MCH 32.9 MCHC 34.1 RDW 13.9 Plt Count 204 MPV 7.9 Neut % (Auto) 88.9 H Lymph % (Auto) 9.9 Curry % (Auto) 1.0 Eos % (Auto) 0.0 Baso % (Auto) 0.2 Neut # (Auto) 6.2 Lymph # (Auto) 0.7 L Curry # (Auto) 0.1 Eos # (Auto) 0.0 Baso # (Auto) 0.0 WBC Differential . Differential Comment Auto diff final Puncture Site Right radial Patient Temperature 98.6 O2 Saturation 96 ABG pH 7.39 ABG pCO2 53 H* ABG pO2 108 ABG HCO3 31 H ABG O2 Content 18.4 ABG Base Excess 6.4 H ABG Methemoglobin 1.0 Royce Test Present Hemoglobin 13.6 Carboxyhemoglobin 1.5 O2 Delivery Device Nasal cannula Liter Flow 3.00 Critical Value Yes Sodium 138 Potassium 4.3 Chloride 99 Carbon Dioxide 32.8 H Anion Gap 6 BUN 16 Creatinine 0.80 Estimated GFR Greater than 89 Random Glucose 142 H Calcium 8.6 Total Bilirubin 0.5 AST 13 L ALT 14 Alkaline Phosphatase 84 Total Protein 7.5 Albumin 2.8 L Microbiology 05/01/18 12:20 Blood - Peripheral Aerobic Blood Culture - Preliminary No growth in 1 day 05/01/18 12:20 Blood - Peripheral Anaerobic Blood Culture - Preliminary No growth in 1 day 05/01/18 12:15 Blood - Peripheral Aerobic Blood Culture - Preliminary No growth in 1 day 05/01/18 12:15 Blood - Peripheral Anaerobic Blood Culture - Preliminary No growth in 1 day - Imaging Impressions Chest CTA 05/02/18 00:00 CONCLUSION: 1. This study is negative for pulmonary embolism. 2. Moderately severe pulmonary fibrosis which is progressed in severity when compared to prior CT thorax February 2016. Assessment and Plan - Plan 77-year-old male with a history of CHF, COPD, atrial fibrillation on warfarin who presents with a one-week history of progressively worsening shortness of breath both on exertion and at rest, with cough productive of clear sputum. Patient reports some chest tightness this morning which was relieved with nebulization in the ER. The patient was admitted for a COPD exacerbation. 1. COPD exacerbation Patient with shortness of breath on admission. Symptoms improving. Chest xray does not show an infiltrate Continue duoneb treatments IV steroids. CTA chest ordered by Pulmonary team which is negative but shows findings consistent with pulmonary fibrosis. Continue current management and recommendations from pulmonary. 2. Chronic CHF with preserved EF Continue with home medications. 3. Atrial Fibrillation Continue coumadin. INR therapeutic. Pharmacy following the patient. DVT prophylaxis, pt on coumadin.
[2018-05-03] MEDS: MethylPREDNISolone Sod Succinate Inj 125 MG/2 ML Vial IV.PUSH SCH ×4 (05:14→22:10)
[2018-05-03 07:29] LABS: INR 2.1 Ratio; Prothrombin Time 21.4 sec (9.8-11.6)
--- NOTE | 2018-05-03 08:56 | P.PN ---
Subjective Interval history: This is a pleasant 77 y/o Male with CHF, COPD, Atrial Fibrillation, on Warfarin , came to ER with One week of feeling short of breath, productive of clear sputum, Patient reports some chest tightness this morning which was relieved with nebulization in the ER. The patient was admitted for a COPD exacerbation.Pt complains of some shortness of breath, slightly improved from yesterday. 05/03: Seen in his bedroom improving condition, now breathing better but after discussed by nurse Miss Morgan with Doctor White is not been cleared for discharge will need more management before discharge home, he has Obesity, continue Oxygen by nasal cannula. no nausea, vomit or diarrhea. Physical Exam Vital signs: Vital Signs 05/02/18 09:22 05/02/18 12:00 05/02/18 12:11 Temperature 97.5 F L Pulse Rate 82 116 H 93 H Respiratory Rate 18 24 18 Blood Pressure 93/61 L Pulse Oximetry 96 91 L 05/02/18 15:00 05/02/18 16:00 05/02/18 16:20 Temperature 97.5 F L Pulse Rate 93 H Respiratory Rate 26 H 24 16 Blood Pressure 124/65 Pulse Oximetry 91 L 05/02/18 17:29 05/02/18 20:00 05/02/18 21:16 Temperature 97.3 F L Pulse Rate 74 99 H 69 Respiratory Rate 20 18 16 Blood Pressure 127/73 Pulse Oximetry 94 L 95 05/02/18 23:49 05/03/18 00:00 05/03/18 03:59 Temperature 97.4 F L Pulse Rate 61 68 77 Respiratory Rate 20 18 20 Blood Pressure 118/61 Pulse Oximetry 92 L 05/03/18 08:12 Temperature Pulse Rate 67 Respiratory Rate 22 Blood Pressure Pulse Oximetry 88 L Intake & Output 05/02/18 05/03/18 05/03/18 18:59 06:59 18:59 Intake Total 1100 / 1100 Output Total 250 / 250 Balance 1100 / 1100 -250 / -250 Weight 92.9 kg Intake: Oral 1100 / 1100 Output: Urine 250 / 250 Other: # Voids 5 # Bowel Movements 0 Narrative: GENERAL: This is a well-nourished, well-developed patient, in no apparent distress. CARDIOVASCULAR: Regular rate and rhythm without murmurs, gallops, or rubs. RESPIRATORY: Clear to auscultation. Breath sounds equal bilaterally. No wheezes , rales, or rhonchi. GASTROINTESTINAL: Abdomen soft, non-tender, nondistended. Normal active bowel sounds MUSCULOSKELETAL: Extremities without clubbing, cyanosis, or edema. NEURO: Alert & Oriented x4 to person, place, time, situation. Moves all ext x4 Results - Labs CBC & Chem 7: 05/02/18 04:03 05/02/18 04:03 Laboratory Results - last 24 hr 05/03/18 05:37 PT 21.4 H INR 2.1 Microbiology 05/01/18 12:20 Blood - Peripheral Aerobic Blood Culture - Preliminary No growth in 1 day 05/01/18 12:20 Blood - Peripheral Anaerobic Blood Culture - Preliminary No growth in 1 day 05/01/18 12:15 Blood - Peripheral Aerobic Blood Culture - Preliminary No growth in 1 day 05/01/18 12:15 Blood - Peripheral Anaerobic Blood Culture - Preliminary No growth in 1 day - Imaging Impressions Chest CTA 05/02/18 00:00 CONCLUSION: 1. This study is negative for pulmonary embolism. 2. Moderately severe pulmonary fibrosis which is progressed in severity when compared to prior CT thorax February 2016. Assessment and Plan - Plan 77-year-old male with a history of CHF, COPD, atrial fibrillation on warfarin who presents with a one-week history of progressively worsening shortness of breath both on exertion and at rest, with cough productive of clear sputum. Patient reports some chest tightness this morning which was relieved with nebulization in the ER. The patient was admitted for a COPD exacerbation. 1. COPD exacerbation Patient with shortness of breath on admission. Symptoms improving. Chest xray does not show an infiltrate Continue duoneb treatments IV steroids. CTA chest ordered by Pulmonary team which is negative but shows findings consistent with pulmonary fibrosis. Continue current management and recommendations from pulmonary. not yet cleared for discharge 2. Chronic CHF with preserved EF Continue with home medications. 3. Atrial Fibrillation Continue coumadin. INR therapeutic. Pharmacy following the patient. 4. Obesity strongly recommended diet and exercise as outpatient. DVT prophylaxis, pt on Coumadin. Code Status: Full code. Discussed Condition With: patient and Nurse Miss StevensADAM segura. Discharge Planning: Expected by tomorrow.
[2018-05-03] MEDS: Azithromycin 250 MG Tablet PO SCH (09:45)
[2018-05-03] MEDS: Atenolol 50 MG Tablet PO SCH (20:15)
[2018-05-04] MEDS: MethylPREDNISolone Sod Succinate Inj 125 MG/2 ML Vial IV.PUSH SCH ×2 (03:55→09:30)
[2018-05-04 09:29] LABS: INR 2.2 Ratio
[2018-05-04] MEDS: Azithromycin 250 MG Tablet PO SCH (09:30)
--- NOTE | 2018-05-04 11:13 | P.PN ---
Subjective Interval history: This is a pleasant 77 y/o Male with CHF, COPD, Atrial Fibrillation, on Warfarin , came to ER with One week of feeling short of breath, productive of clear sputum, Patient reports some chest tightness this morning which was relieved with nebulization in the ER. The patient was admitted for a COPD exacerbation.Pt complains of some shortness of breath, slightly improved from yesterday. 05/03: Seen in his bedroom improving condition, now breathing better but after discussed by nurse Miss Morgan with Doctor Tamiko is not been cleared for discharge will need more management before discharge home, he has Obesity, continue Oxygen by nasal cannula. 05/04: Seen in his bedroom, discussed with doctor Adryan Morrison not yet clear for discharge, no nausea, vomit or diarrhea. Physical Exam Vital signs: Vital Signs 05/03/18 11:35 05/03/18 12:00 05/03/18 16:00 Temperature 97.2 F L 97.6 F Pulse Rate 84 86 100 H Respiratory Rate 17 18 Blood Pressure 108/67 129/75 Pulse Oximetry 96 97 05/03/18 16:15 05/03/18 19:56 05/03/18 20:00 Temperature 97.5 F L Pulse Rate 86 90 94 H Respiratory Rate 18 24 22 Blood Pressure 119/68 Pulse Oximetry 96 95 05/03/18 23:48 05/04/18 00:16 05/04/18 03:29 Temperature 97.7 F Pulse Rate 73 78 78 Respiratory Rate 22 22 22 Blood Pressure 141/79 H Pulse Oximetry 95 05/04/18 08:00 05/04/18 08:40 Temperature 97.4 F L Pulse Rate 74 79 Respiratory Rate 17 18 Blood Pressure 126/73 Pulse Oximetry 98 98 Intake & Output 05/03/18 05/04/18 05/04/18 18:59 06:59 18:59 Intake Total 620 / 620 580 / 580 Output Total 450 / 450 1000 / 1000 Balance 170 / 170 -420 / -420 Weight 93 kg Intake: Oral 620 / 620 580 / 580 Output: Urine 450 / 450 1000 / 1000 Other: Date of Last Bowel Movement 04/29/18 # Bowel Movements 0 1 Narrative: GENERAL: This is a well-nourished, well-developed patient, in no apparent distress. CARDIOVASCULAR: Regular rate and rhythm without murmurs, gallops, or rubs. RESPIRATORY: Clear to auscultation. Breath sounds equal bilaterally. No wheezes , rales, or rhonchi. GASTROINTESTINAL: Abdomen soft, non-tender, nondistended. Normal active bowel sounds MUSCULOSKELETAL: Extremities without clubbing, cyanosis, or edema. NEURO: Alert & Oriented x4 to person, place, time, situation. Moves all ext x4 Results - Labs CBC & Chem 7: 05/02/18 04:03 05/02/18 04:03 Laboratory Results - last 24 hr 05/04/18 07:11 PT 22.0 H INR 2.2 Microbiology 05/01/18 12:20 Blood - Peripheral Aerobic Blood Culture - Preliminary No growth in 3 days 05/01/18 12:20 Blood - Peripheral Anaerobic Blood Culture - Preliminary No growth in 3 days 05/01/18 12:15 Blood - Peripheral Aerobic Blood Culture - Preliminary No growth in 3 days 05/01/18 12:15 Blood - Peripheral Anaerobic Blood Culture - Preliminary No growth in 3 days Assessment and Plan - Plan 77-year-old male with a history of CHF, COPD, atrial fibrillation on warfarin who presents with a one-week history of progressively worsening shortness of breath both on exertion and at rest, with cough productive of clear sputum. Patient reports some chest tightness this morning which was relieved with nebulization in the ER. The patient was admitted for a COPD exacerbation. 1. COPD exacerbation Patient with shortness of breath on admission. Symptoms improving. Chest xray does not show an infiltrate Continue duoneb treatments IV steroids. CTA chest ordered by Pulmonary team which is negative but shows findings consistent with pulmonary fibrosis. Continue current management and recommendations from pulmonary. not yet cleared for discharge 2. Chronic CHF with preserved EF Continue with home medications. 3. Atrial Fibrillation Continue coumadin. INR therapeutic. Pharmacy following the patient. 4. Obesity strongly recommended diet and exercise as outpatient. DVT prophylaxis, pt on Coumadin. Code Status: Full code. Discussed Condition With: Patient and nurse and MDR. Discharge Planning: Expected by tomorrow.
[2018-05-04] MEDS: predniSONE 10 MG Tablet PO SCH (22:20)
[2018-05-04] MEDS: Atenolol 50 MG Tablet PO SCH (22:21)
[2018-05-05 07:20] LABS: INR 2.5 Ratio; Prothrombin Time 25.2 sec (9.8-11.6)
[2018-05-05 08:17] VITALS: RESP 16
[2018-05-05] MEDS: predniSONE 10 MG Tablet PO SCH (08:31)
[2018-05-05] MEDS: Azithromycin 250 MG Tablet PO SCH (08:32)
[2018-05-05 12:55] VITALS: BP 125/79; PULSE 80; TEMP 98; O2SAT 100
--- NOTE | 2018-05-05 15:30 | P.DS ---
Date of admission: 05/01/18 12:48 Primary care physician: Althea Lam MD Attending physician on discharge: Yosef Carey Anticipated date of discharge: 05/05/18 Brief History from admission: 77-year-old male with a history of CHF, COPD, atrial fibrillation on warfarin who presents with a one-week history of progressively worsening shortness of breath both on exertion and at rest, with cough productive of clear sputum. Patient reports some chest tightness this morning which was relieved with nebulization in the ER. Denies any emerson chest pain. Denies any fevers, chills , nausea, vomiting, laziness, dizziness. Patient does report a 30 pound weight loss over the past 2 months. DS: Diagnosis - Discharge Diagnosis (1) Pulmonary fibrosis Status: Acute (2) CHF (congestive heart failure) Status: Acute (3) COPD (chronic obstructive pulmonary disease) Status: Acute DS: Medications - Discharge Medications Prescriptions: azithromycin 500 mg PO DAILY #5 tab prednisone 30 mg PO BID #100 tab DS: Summary Hospital Course: This is a pleasant 77 y/o Male with CHF, COPD, Atrial Fibrillation, on Warfarin , came to ER with One week of feeling short of breath, productive of clear sputum, Patient reports some chest tightness this morning which was relieved with nebulization in the ER. The patient was admitted for a COPD exacerbation.Pt complains of some shortness of breath, slightly improved from yesterday. 05/03: Seen in his bedroom improving condition, now breathing better but after discussed by nurse Miss Morgan with Doctor Morrison is not been cleared for discharge will need more management before discharge home, he has Obesity, continue Oxygen by nasal cannula. 05/04: Seen in his bedroom, discussed with doctor Adryan Morrison not yet clear for discharge. 05/05: Stable seen in his bedroom discussed with doctor Adryan Morrison, he was walking with the patient and has no oxygen desaturation even without oxygen, he has oxygen at home asked me to discharge the patient, will go on Prednisone 30 mg BID and follow with his primary media services specialist. no nausea vomit or diarrhea. Physical Exam Vital signs: Vital Signs 05/04/18 16:00 05/04/18 20:00 05/04/18 20:20 Temperature 97.7 F 97.1 F L Pulse Rate 86 94 H 86 Respiratory Rate 17 19 16 Blood Pressure 124/81 136/79 Pulse Oximetry 96 95 05/04/18 23:15 05/05/18 03:39 05/05/18 08:00 Temperature 96.6 F L Pulse Rate 76 69 66 Respiratory Rate 22 18 16 Blood Pressure 150/91 H Pulse Oximetry 96 05/05/18 08:15 05/05/18 12:00 Temperature 98.0 F Pulse Rate 61 80 Respiratory Rate 16 16 Blood Pressure 125/79 Pulse Oximetry 95 100 Intake & Output 05/04/18 05/05/18 05/05/18 18:59 06:59 18:59 Intake Total 1800 / 1800 240 / 240 Output Total 400 / 400 Balance 1800 / 1800 -160 / -160 Weight 93.9 kg Intake: Oral 1800 / 1800 240 / 240 Output: Urine 400 / 400 Other: # Voids 10 1 Date of Last Bowel Movement 05/04/18 05/04/18 # Bowel Movements 1 Results - Labs CBC & Chem 7: 05/02/18 04:03 05/02/18 04:03 Laboratory Results - last 24 hr 05/05/18 06:23 PT 25.2 H INR 2.5 Microbiology 05/01/18 12:20 Blood - Peripheral Aerobic Blood Culture - Preliminary No growth in 4 days 05/01/18 12:20 Blood - Peripheral Anaerobic Blood Culture - Preliminary No growth in 4 days 05/01/18 12:15 Blood - Peripheral Aerobic Blood Culture - Preliminary No growth in 4 days 05/01/18 12:15 Blood - Peripheral Anaerobic Blood Culture - Preliminary No growth in 4 days Assessment and Plan - Plan 77-year-old male with a history of CHF, COPD, atrial fibrillation on warfarin who presents with a one-week history of progressively worsening shortness of breath both on exertion and at rest, with cough productive of clear sputum. Patient reports some chest tightness this morning which was relieved with nebulization in the ER. The patient was admitted for a COPD exacerbation. 1. COPD exacerbation/End Stage Pulmonary Fibrosis. Patient with shortness of breath on admission. Symptoms improving. Chest xray does not show an infiltrate Continue duoneb treatments IV steroids. CTA chest ordered by Pulmonary team which is negative but shows findings consistent with pulmonary fibrosis. Discussed with media services specialist doctor Adryan williamson to discharge home from media services specialist standpoint discharge on Prednisone 30 mg BID and follow with his primary media services specialist and titrate Steroids. 2. Chronic CHF with preserved EF Continue with home medications. 3. Atrial Fibrillation Continue coumadin. INR therapeutic. Pharmacy following the patient. 4. Obesity strongly recommended diet and exercise as outpatient. DVT prophylaxis, pt on Coumadin. INR 2.5 will continue management by his PCP Code Status: Full code. Discussed Condition With: Patient and Nurse. and care management specialist Doctor Adryan Morrison. Discharge Planning: Discharge home now. - Time Spent with Patient Total time spent providing and/or coordinating discharge services: Greater than 30 minutes Exam Vital signs: Vital Signs 05/04/18 16:00 05/04/18 20:00 05/04/18 20:20 Temperature 97.7 F 97.1 F L Pulse Rate 86 94 H 86 Respiratory Rate 17 19 16 Blood Pressure 124/81 136/79 Pulse Oximetry 96 95 05/04/18 23:15 05/05/18 03:39 05/05/18 08:00 Temperature 96.6 F L Pulse Rate 76 69 66 Respiratory Rate 22 18 16 Blood Pressure 150/91 H Pulse Oximetry 96 05/05/18 08:15 05/05/18 12:00 Temperature 98.0 F Pulse Rate 61 80 Respiratory Rate 16 16 Blood Pressure 125/79 Pulse Oximetry 95 100 Intake & Output 05/04/18 05/05/18 05/05/18 18:59 06:59 18:59 Intake Total 1800 / 1800 240 / 240 Output Total 400 / 400 Balance 1800 / 1800 -160 / -160 Weight 93.9 kg Intake: Oral 1800 / 1800 240 / 240 Output: Urine 400 / 400 Other: # Voids 10 1 Date of Last Bowel Movement 05/04/18 05/04/18 # Bowel Movements 1 Narrative: GENERAL: This is a well-nourished, well-developed patient, in no apparent distress. CARDIOVASCULAR: Regular rate and rhythm without murmurs, gallops, or rubs. RESPIRATORY: Clear to auscultation. Breath sounds equal bilaterally. No wheezes , rales, or rhonchi. GASTROINTESTINAL: Abdomen soft, non-tender, nondistended. Normal active bowel sounds MUSCULOSKELETAL: Extremities without clubbing, cyanosis, or edema. NEURO: Alert & Oriented x4 to person, place, time, situation. Moves all ext x4 Results Procedures completed during hospitalization: None Labs on day of discharge: Labs from last 24 hours 05/05/18 06:23 PT 25.2 H INR 2.5 Preliminary micro results at discharge 05/01/18 12:20 Aerobic Blood Culture - Preliminary Blood - Peripheral No growth in 4 days Anaerobic Blood Culture - Preliminary No growth in 4 days 05/01/18 12:15 Aerobic Blood Culture - Preliminary Blood - Peripheral No growth in 4 days Anaerobic Blood Culture - Preliminary No growth in 4 days - Impressions ITS Impressions Chest X-Ray 05/01/18 10:07 CONCLUSION: Cardiomegaly with mild increased interstitial markings likely related to edema and CHF versus chronic increased interstitial markings and underlying interstitial disease. Interstitial markings appear unchanged when compared to prior exams. Chest CTA 05/02/18 00:00 CONCLUSION: 1. This study is negative for pulmonary embolism. 2. Moderately severe pulmonary fibrosis which is progressed in severity when compared to prior CT thorax February 2016. Discharge Plan - Discharge Disposition Patient Disposition: Discharge Home - Discharge Condition Condition: Stable - Discharge Order Discharge Orders: Discharge Order (Routine); Ordered 05/05/18 Ordered By: Yosef Carey - Discharge Details Anticipated Discharge Date: 05/05/18 Discharge Comment: Follow up in one week with media services specialist to titrate Steroid management. - Physicians Team Primary Care Provider: Althea Lam Attending Provider: Yosef Carey Other Providers: Adryan Morrison MD ; [employer]
== END 2018-05-05 14:26 | disposition home or self-care (01) ==
LOC: NEPE 09:52 → NEDA 12:48 → N07 15:24
PROVIDERS: ADMIT Internal Medicine; ATTEND Internal Medicine
DX: R63.4 Abnormal weight loss; I50.32 Chronic diastolic (congestive) heart failure; Z87.891 Personal history of nicotine dependence; I48.2 Chronic atrial fibrillation; J84.10 Pulmonary fibrosis, unspecified; Z79.01 Long term (current) use of anticoagulants; E66.9 Obesity, unspecified; R06.00 Dyspnea, unspecified; Z68.29 Body mass index [BMI] 29.0-29.9, adult; Z85.038 Personal history of other malignant neoplasm of large intestine; J44.1 Chronic obstructive pulmonary disease with (acute) exacerbation; Z99.81 Dependence on supplemental oxygen